=== PATIENT | male | born 1930 | race Caucasian/White ===

== ENCOUNTER → 2016-08-13 | Outpatient (CLI) | payer MEDICARE, OTHER ==
[~2016-08-13] MED LIST: ASCO500T5 PO; AZIT250T89 PO; BACL-19 PO; CARV3.122 PO; CARV6.2512 PO; DOCU-30 PO; FERR325T20 PO; FINA5TAB4 PO; FURO20TA3 PO; GABA300C10 PO; INSU100V5 SQ-INSULIN; LISI2.5T PO; METF500T4 PO; MIRT15TA6 PO; MULT-750 PO; POLY17PO5 PO; POTA10TA11 PO; RIVA20TA PO; SENN1TAB7 PO; TAMS0.4C2 PO; TRAM50TA2 PO; TRAV5DRO EACHEYE; VANC1VIA3 IV
== END | disposition home or self-care (01) ==
LOC: WOUND 12:50
PROVIDERS: ATTEND Internal Medicine
DX: E11.621 Type 2 diabetes mellitus with foot ulcer (principal); L97.411 Non-pressure chronic ulcer of right heel and midfoot limited to breakdown of skin; L89.512 Pressure ulcer of right ankle, stage 2; L89.150 Pressure ulcer of sacral region, unstageable; E44.0 Moderate protein-calorie malnutrition; Z86.718 Personal history of other venous thrombosis and embolism; M19.90 Unspecified osteoarthritis, unspecified site; Z87.891 Personal history of nicotine dependence
CPT/HCPCS: G0463; WOU0463

== ENCOUNTER 2016-08-20 11:12 | Inpatient (IN) | payer MEDICARE, OTHER ==
[~2016-08-20] VITALS: Ht 177.8 cm; Wt 70.0 kg
[~2016-08-20 11:12] MED LIST changes: -CARV6.2512 PO
[2016-08-20] MEDS ORDERED: SODIUM CHLORIDE 0.9% 1,000 ML IV ONE (12:17)
[2016-08-20] MEDS ORDERED: CARV6.2512 PO (12:26)
[2016-08-20] MEDS ORDERED: SODIUM CHLORIDE FLUSH 10ML SYR IVF ONE (12:30)
[2016-08-20 12:56] LABS: ASPARTATE AMINO TRANSFERASE 10 U/L (15-37); BLOOD UREA NITROGEN 12 mg/dL (7-18)
[2016-08-20] MEDS ORDERED: HYDROmorphone 1 MG/ML, 1ML IV ONE ×2 (13:00→15:30)
[2016-08-20] MEDS ORDERED: HYDROmorphone 1 MG/ML, 1ML ONE ×2 (13:03→15:07)
[2016-08-20] MEDS ORDERED: ONDANSETRON 2MG/ML, 2ML ONE (13:04)
[2016-08-20] MEDS ORDERED: ONDANSETRON 2MG/ML, 2ML IVPush ONE (13:30)
[2016-08-20] MEDS ORDERED: LORazepam 2 MG/ML, 1ML ONE (15:34)
[2016-08-20] MEDS ORDERED: GADOBUTROL 7.5 MMOL/7.5 ML PFS ONE (15:54)
[2016-08-20] MEDS ORDERED: LORazepam 2 MG/ML, 1ML IVPush ONE ×2 (16:00)
[2016-08-20] MEDS: SODIUM CHLORIDE 0.9% 1,000 ML IV SCH (18:48)
[2016-08-20] MEDS ORDERED: ACETAMINOPHEN 325 MG TABLET PO PRN (19:00)
[2016-08-20] MEDS ORDERED: OXYcodone IR 5MG TABLET PO PRN (19:00)
[2016-08-20] MEDS ORDERED: DOCUSATE 100 MG CAPSULE PO PRN (19:00)
[2016-08-20] MEDS ORDERED: ONDANSETRON 2MG/ML, 2ML IVPush PRN (19:00)
[2016-08-20] MEDS ORDERED: morphine SULFATE 10 MG/ML, 1ML IVPush PRN (19:00)
[2016-08-20] MEDS ORDERED: BISACODYL 10 MG SUPP PR PRN (19:30)
[2016-08-20] MEDS ORDERED: POLYETHYLENE GLYCOL 17 GM PACKET PO PRN (19:30)
[2016-08-20 20:27] VITALS: BP 151/78
[2016-08-20] MEDS: TRAVOPROST OPHTH 0.004%, 2.5ML EACHEYE SCH (21:00)
[2016-08-20] MEDS: INSULIN ASPART 100 UNITS/ML, PEN SQ-INSULIN SCH (21:00)
[2016-08-20] MEDS ORDERED: metFORMIN 500 MG TABLET PO SCH (21:00)
[2016-08-20] MEDS: METHOCARBAMOL 500 MG TABLET PO SCH (23:52)
[2016-08-20] MEDS: PANTOPRAZOLE 20MG TABLET PO SCH (23:52)
[2016-08-20] MEDS: MIRTAZAPINE 15 MG TAB.RAPDIS PO SCH (23:52)
[2016-08-20] MEDS: DEXAMETHASONE 10 MG in SODIUM CHLORIDE 0.9% 50 ML IV SCH (23:54)
[2016-08-21] MEDS: DEXAMETHASONE 10 MG in SODIUM CHLORIDE 0.9% 50 ML IV SCH ×2 (01:30→07:42)
[2016-08-21 03:05] VITALS: BP 135/65
[2016-08-21] MEDS: SODIUM CHLORIDE 0.9% 1,000 ML IV SCH ×2 (04:48→14:53)
[2016-08-21 06:33] VITALS: BP 156/60
[2016-08-21] MEDS: METHOCARBAMOL 500 MG TABLET PO SCH ×4 (06:42→20:55)
[2016-08-21] MEDS: INSULIN ASPART 100 UNITS/ML, PEN SQ-INSULIN SCH ×4 (06:42→22:13)
[2016-08-21 06:58] LABS: BLOOD UREA NITROGEN 12 mg/dL (7-18)
[2016-08-21 06:59] LABS: ASPARTATE AMINO TRANSFERASE 16 U/L (15-37)
[2016-08-21] MEDS: PANTOPRAZOLE 20MG TABLET PO SCH ×2 (07:42→20:55)
[2016-08-21] MEDS ORDERED: FERROUS SULFATE 325 MG TABLET PO SCH (09:00)
[2016-08-21] MEDS: POLYETHYLENE GLYCOL 17 GM PACKET PO SCH (10:16)
[2016-08-21] MEDS: SENNA/DOCUSATE TABLET PO SCH (10:16)
[2016-08-21] MEDS: MULTIVITAMIN 1 TABLET PO SCH (10:16)
[2016-08-21] MEDS: TAMSULOSIN 0.4 MG CAP.ER.24H PO SCH (10:16)
[2016-08-21] MEDS: CARVEDILOL 6.25 MG TABLET PO SCH (10:16)
[2016-08-21 14:43] VITALS: BP 131/64
[2016-08-21] MEDS: DEXAMETHASONE 4 MG/ML, 1ML IVPush SCH ×2 (14:53→20:55)
[2016-08-21] MEDS: MIRTAZAPINE 15 MG TAB.RAPDIS PO SCH (20:54)
[2016-08-21] MEDS: TRAVOPROST OPHTH 0.004%, 2.5ML EACHEYE SCH (21:00)
[2016-08-21 21:08] VITALS: BP 132/63
[2016-08-22 00:47] VITALS: BP 125/67
[2016-08-22] MEDS: LATANOPROST OPHTH 0.005%, 2.5ML EACHEYE SCH ×2 (02:36→20:09)
[2016-08-22] MEDS: DEXAMETHASONE 4 MG/ML, 1ML IVPush SCH ×2 (02:36→08:13)
[2016-08-22 05:26] LABS: BLOOD UREA NITROGEN 23 mg/dL (7-18)
[2016-08-22] MEDS: METHOCARBAMOL 500 MG TABLET PO SCH ×4 (06:28→20:08)
[2016-08-22] MEDS: POLYETHYLENE GLYCOL 17 GM PACKET PO SCH (08:12)
[2016-08-22] MEDS: INSULIN ASPART 100 UNITS/ML, PEN SQ-INSULIN SCH ×4 (08:12→20:28)
[2016-08-22] MEDS: TAMSULOSIN 0.4 MG CAP.ER.24H PO SCH (08:12)
[2016-08-22] MEDS: MULTIVITAMIN 1 TABLET PO SCH (08:12)
[2016-08-22] MEDS: SENNA/DOCUSATE TABLET PO SCH (08:12)
[2016-08-22] MEDS: PANTOPRAZOLE 20MG TABLET PO SCH ×2 (08:13→20:08)
[2016-08-22] MEDS: CARVEDILOL 6.25 MG TABLET PO SCH (08:13)
[2016-08-22 08:15] VITALS: BP 147/57
[2016-08-22 12:46] VITALS: BP 135/51
[2016-08-22] MEDS: DEXAMETHASONE 4 MG TABLET PO SCH (16:34)
[2016-08-22 18:26] VITALS: BP 130/55
[2016-08-22] MEDS: MIRTAZAPINE 15 MG TAB.RAPDIS PO SCH (20:08)
[2016-08-23 01:59] VITALS: BP 164/64
[2016-08-23] MEDS: INSULIN ASPART 100 UNITS/ML, PEN SQ-INSULIN SCH ×4 (06:09→20:21)
[2016-08-23] MEDS: METHOCARBAMOL 500 MG TABLET PO SCH ×4 (06:09→20:15)
[2016-08-23] MEDS: PANTOPRAZOLE 20MG TABLET PO SCH ×2 (07:54→20:15)
[2016-08-23] MEDS: MULTIVITAMIN 1 TABLET PO SCH (07:54)
[2016-08-23] MEDS: DEXAMETHASONE 4 MG TABLET PO SCH (07:54)
[2016-08-23] MEDS: CARVEDILOL 6.25 MG TABLET PO SCH (07:54)
[2016-08-23] MEDS: TAMSULOSIN 0.4 MG CAP.ER.24H PO SCH (07:58)
[2016-08-23] MEDS: POLYETHYLENE GLYCOL 17 GM PACKET PO SCH (07:59)
[2016-08-23] MEDS: SENNA/DOCUSATE TABLET PO SCH (07:59)
[2016-08-23 08:28] VITALS: BP 155/83
[2016-08-23 12:16] VITALS: BP 153/77
[2016-08-23] MEDS ORDERED: OXYC5TAB3 PO (12:57)
[2016-08-23] MEDS ORDERED: ALPR0.254 PO (12:57)
[2016-08-23] MEDS ORDERED: POLY17PO5 PO (12:57)
[2016-08-23] MEDS ORDERED: METH500T7 PO (12:57)
[2016-08-23 19:57] VITALS: BP 173/78
[2016-08-23] MEDS: MIRTAZAPINE 15 MG TAB.RAPDIS PO SCH (20:15)
[2016-08-23] MEDS: LATANOPROST OPHTH 0.005%, 2.5ML EACHEYE SCH (20:15)
[2016-08-23] MEDS: hydrALAzine 20 MG/ML, 1ML IVPush PRN (20:15)
[2016-08-24 01:37] VITALS: BP 183/85
[2016-08-24] MEDS: hydrALAzine 20 MG/ML, 1ML IVPush PRN (01:56)
[2016-08-24 02:10] VITALS: BP 149/67
[2016-08-24] MEDS: METHOCARBAMOL 500 MG TABLET PO SCH ×4 (06:01→22:04)
[2016-08-24] MEDS: INSULIN ASPART 100 UNITS/ML, PEN SQ-INSULIN SCH ×4 (06:01→20:28)
[2016-08-24 06:21] VITALS: BP 128/70
[2016-08-24] MEDS: MULTIVITAMIN 1 TABLET PO SCH (08:20)
[2016-08-24] MEDS: POLYETHYLENE GLYCOL 17 GM PACKET PO SCH (08:20)
[2016-08-24] MEDS: CARVEDILOL 6.25 MG TABLET PO SCH (08:20)
[2016-08-24] MEDS: SENNA/DOCUSATE TABLET PO SCH (08:20)
[2016-08-24] MEDS: TAMSULOSIN 0.4 MG CAP.ER.24H PO SCH (08:20)
[2016-08-24] MEDS: PANTOPRAZOLE 20MG TABLET PO SCH ×2 (08:20→20:09)
[2016-08-24 13:43] VITALS: BP 95/47
[2016-08-24 19:05] VITALS: BP 94/50
[2016-08-24] MEDS: MIRTAZAPINE 15 MG TAB.RAPDIS PO SCH (22:04)
[2016-08-24] MEDS: LATANOPROST OPHTH 0.005%, 2.5ML EACHEYE SCH (22:08)
[2016-08-25 03:49] VITALS: BP 104/49
[2016-08-25 06:26] VITALS: BP 135/66
[2016-08-25] MEDS: METHOCARBAMOL 500 MG TABLET PO SCH ×4 (06:36→22:54)
[2016-08-25] MEDS: INSULIN ASPART 100 UNITS/ML, PEN SQ-INSULIN SCH ×4 (07:21→19:52)
[2016-08-25] MEDS: MULTIVITAMIN 1 TABLET PO SCH (07:54)
[2016-08-25] MEDS: CARVEDILOL 6.25 MG TABLET PO SCH (07:54)
[2016-08-25] MEDS: POLYETHYLENE GLYCOL 17 GM PACKET PO SCH (07:54)
[2016-08-25] MEDS: PANTOPRAZOLE 20MG TABLET PO SCH ×2 (07:54→19:56)
[2016-08-25] MEDS: SENNA/DOCUSATE TABLET PO SCH (07:54)
[2016-08-25] MEDS: TAMSULOSIN 0.4 MG CAP.ER.24H PO SCH (07:54)
[2016-08-25 13:40] VITALS: BP 116/62
[2016-08-25 18:26] VITALS: BP 139/66
[2016-08-25] MEDS: LATANOPROST OPHTH 0.005%, 2.5ML EACHEYE SCH (19:56)
[2016-08-25] MEDS: MIRTAZAPINE 15 MG TAB.RAPDIS PO SCH (22:54)
[2016-08-26 00:19] VITALS: BP 157/75
[2016-08-26 05:15] LABS: BLOOD UREA NITROGEN 21 mg/dL (7-18)
[2016-08-26] MEDS: METHOCARBAMOL 500 MG TABLET PO SCH ×3 (06:10→16:19)
[2016-08-26] MEDS: INSULIN ASPART 100 UNITS/ML, PEN SQ-INSULIN SCH ×3 (06:14→16:20)
[2016-08-26 06:51] VITALS: BP 136/73
[2016-08-26] MEDS: POLYETHYLENE GLYCOL 17 GM PACKET PO SCH (08:44)
[2016-08-26] MEDS: SENNA/DOCUSATE TABLET PO SCH (08:44)
[2016-08-26] MEDS: PANTOPRAZOLE 20MG TABLET PO SCH (08:50)
[2016-08-26] MEDS: MULTIVITAMIN 1 TABLET PO SCH (08:50)
[2016-08-26] MEDS: TAMSULOSIN 0.4 MG CAP.ER.24H PO SCH (08:50)
[2016-08-26] MEDS: CARVEDILOL 6.25 MG TABLET PO SCH (08:51)
[2016-08-26 12:33] VITALS: BP 131/67
== END 2016-08-26 18:11 | DRG 551 ==
LOC: ED 11:42 → EDIP 14:33 → 4NOR 17:52
PROVIDERS: ADMIT Internal Medicine
DX: M48.06 Spinal stenosis, lumbar region (principal); E43 Unspecified severe protein-calorie malnutrition; L89.154 Pressure ulcer of sacral region, stage 4; K59.2 Neurogenic bowel, not elsewhere classified; D61.818 Other pancytopenia; G83.4 Cauda equina syndrome; S22.32XA Fracture of one rib, left side, initial encounter for closed fracture; M54.16 Radiculopathy, lumbar region; E11.9 Type 2 diabetes mellitus without complications; I10 Essential (primary) hypertension; K56.41 Fecal impaction; M81.0 Age-related osteoporosis without current pathological fracture; D53.9 Nutritional anemia, unspecified; G43.909 Migraine, unspecified, not intractable, without status migrainosus; M19.90 Unspecified osteoarthritis, unspecified site; N32.89 Other specified disorders of bladder; N40.1 Benign prostatic hyperplasia with lower urinary tract symptoms; R33.8 Other retention of urine; Z88.5 Allergy status to narcotic agent; Z88.1 Allergy status to other antibiotic agents; Z88.8 Allergy status to other drugs, medicaments and biological substances; Z90.49 Acquired absence of other specified parts of digestive tract; Z98.1 Arthrodesis status; Z79.899 Other long term (current) drug therapy; Z82.3 Family history of stroke; Z86.718 Personal history of other venous thrombosis and embolism; Z91.81 History of falling; Z99.3 Dependence on wheelchair; Z86.14 Personal history of Methicillin resistant Staphylococcus aureus infection; Z68.22 Body mass index [BMI] 22.0-22.9, adult
CPT/HCPCS: 36415; 71010; 72158; 74176; 80048; 80053; 80061; 81003; 82306; 82962; 83036; 83735; 84439; 84443; 85025; 85610; 87324; 87493; 96361; 96374; 96375; 96376; A9585; J1100; J1170; J1815; J2405; J0360; J2060; J7030

== ENCOUNTER 2016-10-03 19:45 | Emergency (ER) | payer MEDICARE, OTHER ==
[~2016-10-03] VITALS: Ht 177.8 cm; Wt 63.6 kg
[~2016-10-03 19:45] MED LIST changes: +ALPR0.254 PO; +CARV6.2512 PO; +METH500T7 PO; +OXYC5TAB3 PO
[2016-10-03] MEDS ORDERED: CARV3.122 PO (20:13)
[2016-10-03 22:28] VITALS: BP 122/67
== END 2016-10-03 22:31 | disposition home or self-care (01) ==
LOC: ED 20:07
DX: L25.9 Unspecified contact dermatitis, unspecified cause (principal); E11.9 Type 2 diabetes mellitus without complications; G43.909 Migraine, unspecified, not intractable, without status migrainosus; G89.29 Other chronic pain; M54.9 Dorsalgia, unspecified; M19.90 Unspecified osteoarthritis, unspecified site; N40.0 Benign prostatic hyperplasia without lower urinary tract symptoms
CPT/HCPCS: 93005; 99283

== ENCOUNTER 2016-10-10 02:12 | Emergency (ER) | payer MEDICARE, OTHER ==
[~2016-10-10] VITALS: Ht 177.8 cm; Wt 62.0 kg
[2016-10-10 05:38] VITALS: BP 156/70
== END 2016-10-10 05:43 | disposition home or self-care (01) ==
LOC: ED 02:30
DX: G89.11 Acute pain due to trauma (principal); M25.552 Pain in left hip; E11.9 Type 2 diabetes mellitus without complications; M19.90 Unspecified osteoarthritis, unspecified site; Z86.718 Personal history of other venous thrombosis and embolism; W06.XXXA Fall from bed, initial encounter; Y93.89 Activity, other specified; Y92.89 Other specified places as the place of occurrence of the external cause; Y99.9 Unspecified external cause status
CPT/HCPCS: 99284

== ENCOUNTER 2017-03-25 14:09 | Emergency (ER) | payer MEDICARE ==
[~2017-03-25] VITALS: Ht 177.8 cm; Wt 81.0 kg
[~2017-03-25 14:09] MED LIST changes: +AMOX-291 PO; +ASCO500C2 PO; +DOCU-131 PO; -DOCU-30 PO; +ENOX40SY4 SQ; +FERR325T18 PO; -FERR325T20 PO; +HYDR12.58 PO; +INSU100V8 SQ; +LACT20SO13 PO; +MAGN400O7 PO; +MULT-717 PO; +NITR100C56 PO; +SENN17.23 PO
[2017-03-25 14:56] VITALS: BP 127/78
[2017-03-25] MEDS ORDERED: SODIUM CHLORIDE FLUSH 10ML SYR IVF ONE (15:00)
[2017-03-25] MEDS ORDERED: SODIUM CHLORIDE 0.9% 1,000ML IVBOLUS ONE (15:00)
[2017-03-25 15:14] LABS: CULTURE INDICATED? YES; MICROSCOPIC INDICATED
[2017-03-25 15:18] LABS: MEAN CORPUSCULAR HEMOGLOBIN 34.6 pg (27.5-34.5); MEAN CORPUSCULAR VOLUME 101.7 fL (81-97); PLATELET COUNT 97 x10^3/uL (130-400)
[2017-03-25 15:26] LABS: ALANINE AMINOTRANSFERASE 15 U/L (12-78); ANION GAP 6 mmol/L (5-15); CALCIUM 8.8 mg/dL (8.5-10.1); CHLORIDE 101 mmol/L (98-107)
[2017-03-25 15:28] LABS: ALKALINE PHOSPHATASE 144 U/L (45-117); BILIRUBIN,TOTAL 0.8 mg/dL (0.2-1.0); TROPONIN I < 0.015 ng/mL (0.000-0.045)
[2017-03-25 15:52] LABS: BASOPHILS # (AUTO) 0.01 x10^3/uL (0-0.1); BASOPHILS % (AUTO) 0 % (0-1); EOSINOPHILS # (AUTO) 0.15 x10^3/uL (0-0.4); EOSINOPHILS % (AUTO) 4 % (1-7); LYMPHOCYTES # (AUTO) 0.78 x10^3/uL (1-3.4); LYMPHOCYTES % (AUTO) 20 % (22-44); MD SCAN; MONOCYTES # (AUTO) 0.27 x10^3/uL (0.2-0.8); MONOCYTES % (AUTO) 7 % (2-9); NEUTROPHILS # (AUTO) 2.69 x10^3/uL (1.8-6.8); NEUTROPHILS % (AUTO) 69 % (42-75)
== END 2017-03-25 18:41 ==
LOC: ED 16:06
DX: K59.00 Constipation, unspecified (principal); E11.9 Type 2 diabetes mellitus without complications; G43.909 Migraine, unspecified, not intractable, without status migrainosus; G89.29 Other chronic pain; M54.9 Dorsalgia, unspecified; H40.9 Unspecified glaucoma; Z87.891 Personal history of nicotine dependence
CPT/HCPCS: 36415; 74022; 80053; 81001; 83605; 83690; 84484; 85025; 87077; 87086; 87186; 93005; 96360; 96361; 99285; J7030

== ENCOUNTER 2017-04-02 15:04 | Observation (INO) | payer MEDICARE ==
[~2017-04-02] VITALS: Ht 177.8 cm; Wt 56.1 kg
[2017-04-02] MEDS ORDERED: HYDROmorphone 1 MG/ML, 1ML IVPush PRN (16:30)
[2017-04-02] MEDS ORDERED: SODIUM CHLORIDE FLUSH 10ML SYR IVF ONE (16:30)
[2017-04-02] MEDS ORDERED: SODIUM CHLORIDE 0.9% 1,000ML IVBOLUS ONE (16:30)
[2017-04-02 16:58] LABS: ALBUMIN 2.8 g/dL (3.4-5.0); ANION GAP 8 mmol/L (5-15); CALCIUM 8.5 mg/dL (8.5-10.1); CHLORIDE 105 mmol/L (98-107); CREATININE 0.61 mg/dL (0.7-1.3)
[2017-04-02 16:59] LABS: MEAN CORPUSCULAR HEMOGLOBIN 34.7 pg (27.5-34.5); RED BLOOD COUNT 3.53 x10^6/uL (4.38-5.82); RED CELL DISTRIBUTION WIDTH 13.2 % (9.4-14.8)
[2017-04-02 17:15] LABS: MEAN PLATELET VOLUME 6.4 fL (7.4-10.4); PLATELET COUNT 94 x10^3/uL (130-400)
[2017-04-02 17:17] LABS: MD YES
[2017-04-02 17:22] LABS: <RBC MORPHOLOGY> NORMAL; EOS#(MANUAL) 0.04 x10^3/uL (0.0-0.4); EOS% (MANUAL) 1 % (1-7); LYMPH#(MANUAL) 1.32 x10^3/uL (1-3.4); LYMPHS% (MANUAL) 30 % (22-44); MONOS#(MANUAL) 0.26 x10^3/uL (0.3-2.7); MONOS% (MANUAL) 6 % (2-9); REACTIVE LYMPHS % (MANUAL) 9 % (0-0); SEG#(MANUAL) 2.38 x10^3/uL (1.8-6.8); SEGS% (MANUAL) 54 % (42-75)
[2017-04-02 17:23] LABS: <PLATELET ESTIMATE> DECREASED; <PLT MORPHOLOGY> NORMAL PLT MORPH
[2017-04-02] MEDS ORDERED: HYDROmorphone 2 MG/ML, 1ML ONE (18:03)
[2017-04-02] MEDS: INSULIN ASPART 100 UNITS/ML, PEN SQ-INSULIN SCH (21:00)
[2017-04-02] MEDS ORDERED: MIRTAZAPINE 15 MG TAB.RAPDIS PO SCH (21:00)
[2017-04-02] MEDS ORDERED: LACTULOSE 20 GM/30 ML UDC PO PRN (21:00)
[2017-04-02] MEDS ORDERED: ACETAMINOPHEN 325 MG TABLET PO PRN (21:00)
[2017-04-02 21:46] VITALS: BP 139/62
[2017-04-03 01:40] VITALS: BP 149/65
[2017-04-03] MEDS: INSULIN ASPART 100 UNITS/ML, PEN SQ-INSULIN SCH ×2 (06:48→11:00)
[2017-04-03 07:21] VITALS: BP 156/65
[2017-04-03] MEDS ORDERED: TAMSULOSIN 0.4 MG CAP.ER.24H PO SCH (09:00)
[2017-04-03] MEDS ORDERED: MAGNESIUM HYDROXIDE 8%, 30ML UDC PO SCH (09:00)
[2017-04-03] MEDS ORDERED: MULTIVITAMIN 1 TABLET PO SCH (09:00)
[2017-04-03 13:04] VITALS: BP 142/78
== END 2017-04-03 17:55 | disposition home or self-care (01) ==
LOC: ED 16:44 → INTOOBSV 20:19 → EDIP 20:19 → 3NE 21:25
PROVIDERS: ADMIT Internal Medicine; ATTEND Internal Medicine
DX: R51 Headache (principal); R11.2 Nausea with vomiting, unspecified; G82.50 Quadriplegia, unspecified; E11.9 Type 2 diabetes mellitus without complications; R62.7 Adult failure to thrive; I25.2 Old myocardial infarction; H40.9 Unspecified glaucoma; Z98.1 Arthrodesis status
CPT/HCPCS: 36415; 70450; 80048; 82040; 82962; 85025; 99285; G0378

== ENCOUNTER 2017-11-02 17:31 | Emergency (ER) | payer MEDICARE ==
[~2017-11-02] VITALS: Ht 170.2 cm; Wt 50.0 kg
[~2017-11-02 17:31] MED LIST changes: +ACET-1600 PO; -METF500T4 PO; +METF500T5 PO
[2017-11-02 17:38] VITALS: BP 141/76
[2017-11-02 18:29] LABS: MEAN CORPUSCULAR HGB CONC 34.4 g/dL (33.2-36.2); MEAN CORPUSCULAR VOLUME 101.8 fL (81-97); MEAN PLATELET VOLUME 6.6 fL (7.4-10.4); PLATELET COUNT 93 x10^3/uL (130-400); RED BLOOD COUNT 3.35 x10^6/uL (4.38-5.82); RED CELL DISTRIBUTION WIDTH 14.8 % (9.4-14.8)
[2017-11-02 18:54] LABS: BASOPHILS # (AUTO) 0.02 x10^3/uL (0-0.1); BASOPHILS % (AUTO) 1 % (0-1); EOSINOPHILS # (AUTO) 0.16 x10^3/uL (0-0.4); EOSINOPHILS % (AUTO) 5 % (1-7); LYMPHOCYTES # (AUTO) 1.38 x10^3/uL (1-3.4); LYMPHOCYTES % (AUTO) 40 % (22-44); MD SCAN; MONOCYTES # (AUTO) 0.36 x10^3/uL (0.2-0.8); MONOCYTES % (AUTO) 10 % (2-9); NEUTROPHILS # (AUTO) 1.56 x10^3/uL (1.8-6.8); NEUTROPHILS % (AUTO) 45 % (42-75)
== END 2017-11-03 01:10 | disposition home or self-care (01) ==
LOC: ED 23:59
DX: I44.2 Atrioventricular block, complete (principal); E11.9 Type 2 diabetes mellitus without complications; I25.2 Old myocardial infarction; Z86.718 Personal history of other venous thrombosis and embolism
CPT/HCPCS: 36415; 85025; 93005; 99285

== ENCOUNTER 2017-11-10 19:20 | Inpatient (IN) | payer MEDICARE ==
[~2017-11-10] VITALS: Ht 177.8 cm; Wt 58.0 kg
[~2017-11-10 19:20] MED LIST changes: +METF500T17 PO; -METF500T5 PO; -SENN1TAB7 PO; +SENN1TAB8 PO
[2017-11-10 19:59] LABS: MEAN CORPUSCULAR HGB CONC 34.4 g/dL (33.2-36.2); MEAN CORPUSCULAR VOLUME 101.7 fL (81-97); MEAN PLATELET VOLUME 6.2 fL (7.4-10.4); PLATELET COUNT 155 x10^3/uL (130-400); RED BLOOD COUNT 3.99 x10^6/uL (4.38-5.82)
[2017-11-10] MEDS ORDERED: ONDANSETRON 2MG/ML, 2ML IVPush ONE (20:00)
[2017-11-10 20:01] LABS: BASOPHILS # (AUTO) 0.02 x10^3/uL (0-0.1); BASOPHILS % (AUTO) 0 % (0-1); EOSINOPHILS # (AUTO) 0.17 x10^3/uL (0-0.4); EOSINOPHILS % (AUTO) 3 % (1-7); LYMPHOCYTES # (AUTO) 1.97 x10^3/uL (1-3.4); LYMPHOCYTES % (AUTO) 28 % (22-44); MD NO; MONOCYTES # (AUTO) 0.65 x10^3/uL (0.2-0.8); MONOCYTES % (AUTO) 9 % (2-9); NEUTROPHILS # (AUTO) 4.13 x10^3/uL (1.8-6.8); NEUTROPHILS % (AUTO) 60 % (42-75)
[2017-11-10 20:09] LABS: ALANINE AMINOTRANSFERASE 23 U/L (12-78); ALBUMIN 2.9 g/dL (3.4-5.0); ANION GAP 6 mmol/L (5-15); CHLORIDE 103 mmol/L (98-107); CREATININE 0.72 mg/dL (0.7-1.3)
[2017-11-10 20:12] LABS: ALKALINE PHOSPHATASE 130 U/L (45-117); BILIRUBIN,TOTAL 0.5 mg/dL (0.2-1.0); TOTAL PROTEIN 7.9 g/dL (6.4-8.2)
[2017-11-10 21:28] LABS: CLOSTRIDIUM DIFFICILE ANTIGEN NEGATIVE; CLOSTRIDIUM DIFFICILE TOXIN NEGATIVE (Negative)
[2017-11-10] MEDS ORDERED: OMNIPAQUE 350 MG/ML, 100ML BOTTLE ONE (21:43)
[2017-11-10] MEDS: SODIUM CHLORIDE 0.9% 1,000 ML IV SCH (22:29)
[2017-11-10] MEDS ORDERED: hydrALAzine 20 MG/ML, 1ML IVPush PRN (22:30)
[2017-11-10] MEDS ORDERED: AMPICILLIN/SULBACTAM 1,500 MG in SODIUM CHLORIDE 0.9% 50 ML IV SCH (22:30)
[2017-11-10] MEDS ORDERED: BISACODYL 10 MG SUPP PR PRN (22:30)
[2017-11-10 23:01] LABS: MICROSCOPIC AUTO
[2017-11-10 23:08] LABS: CULTURE INDICATED? YES
[2017-11-10 23:22] VITALS: BP 130/74
[2017-11-11] MEDS: LACTULOSE 10 GM/15 ML UDC PO SCH ×3 (00:12→21:07)
[2017-11-11] MEDS: ENOXAPARIN 40 MG/0.4 ML SQ SCH ×2 (00:12→22:38)
[2017-11-11] MEDS ORDERED: PERMETHRIN CRM 5%, 60GM TP ONE (01:00)
[2017-11-11 01:28] VITALS: BP 97/68
[2017-11-11 05:08] LABS: BASOPHILS % (AUTO) 0 % (0-1); EOSINOPHILS # (AUTO) 0.16 x10^3/uL (0-0.4); EOSINOPHILS % (AUTO) 3 % (1-7); LYMPHOCYTES # (AUTO) 1.48 x10^3/uL (1-3.4); LYMPHOCYTES % (AUTO) 27 % (22-44); MD NO; MEAN CORPUSCULAR HEMOGLOBIN 34.8 pg (27.5-34.5); MEAN CORPUSCULAR HGB CONC 34.3 g/dL (33.2-36.2); MEAN CORPUSCULAR VOLUME 101.3 fL (81-97); MEAN PLATELET VOLUME 6.3 fL (7.4-10.4); MONOCYTES # (AUTO) 0.56 x10^3/uL (0.2-0.8); MONOCYTES % (AUTO) 10 % (2-9); NEUTROPHILS # (AUTO) 3.29 x10^3/uL (1.8-6.8); NEUTROPHILS % (AUTO) 60 % (42-75); PLATELET COUNT 104 x10^3/uL (130-400); RED BLOOD COUNT 3.51 x10^6/uL (4.38-5.82)
[2017-11-11] MEDS: AMPICILLIN/SULBACTAM 1,500 MG in SODIUM CHLORIDE 0.9% 50 ML IV SCH ×4 (05:14→22:38)
[2017-11-11 05:16] LABS: ALANINE AMINOTRANSFERASE 22 U/L (12-78); ALBUMIN 2.7 g/dL (3.4-5.0); ANION GAP 3 mmol/L (5-15); CALCIUM 8.9 mg/dL (8.5-10.1); CHLORIDE 105 mmol/L (98-107); CREATININE 0.63 mg/dL (0.7-1.3)
[2017-11-11 05:19] LABS: ALKALINE PHOSPHATASE 116 U/L (45-117); BILIRUBIN,TOTAL 0.5 mg/dL (0.2-1.0); TOTAL PROTEIN 7.2 g/dL (6.4-8.2)
[2017-11-11] MEDS ORDERED: MAGNESIUM CITRATE 300ML ORAL SOL PO ONE (05:30)
[2017-11-11] MEDS: METHOCARBAMOL 500 MG TABLET PO SCH ×4 (05:42→21:07)
[2017-11-11] MEDS: INSULIN LISPRO 100 UNITS/ML, PEN SQ-INSULIN SCH ×4 (07:00→20:27)
[2017-11-11 07:09] VITALS: BP 139/78
[2017-11-11] MEDS: POLYETHYLENE GLYCOL 17 GM PACKET PO SCH ×2 (07:51→08:06)
[2017-11-11] MEDS: metFORMIN 500 MG TABLET PO SCH ×2 (08:02→21:06)
[2017-11-11] MEDS: TAMSULOSIN 0.4 MG CAP.ER.24H PO SCH (08:06)
[2017-11-11] MEDS: SENNOSIDES 8.6 MG TABLET PO SCH (08:06)
[2017-11-11] MEDS: ASCORBIC ACID 500 MG TABLET PO SCH (08:07)
[2017-11-11] MEDS: MULTIVITAMIN 1 TABLET PO SCH (08:07)
[2017-11-11] MEDS: ACETAMINOPHEN 325 MG TABLET PO PRN ×2 (08:07→17:46)
[2017-11-11 12:55] VITALS: BP 135/76
[2017-11-11] MEDS ORDERED: GADOBUTROL 7.5 MMOL/7.5 ML PFS ONE (17:01)
[2017-11-11 17:10] LABS: % IRON SATURATION 30 % (20-55); FOLATE LEVEL > 20.0 ng/mL (3.1-17.5); IRON LEVEL 64 mcg/dL (65-175); TOTAL IRON BINDING CAPACITY 212 mcg/dL (250-450)
[2017-11-11 18:41] VITALS: BP 138/67
[2017-11-11] MEDS ORDERED: TRAVOPROST OPHTH 0.004%, 2.5ML EACHEYE SCH (21:00)
[2017-11-11] MEDS: MIRTAZAPINE 15 MG TAB.RAPDIS PO SCH (21:07)
[2017-11-11] MEDS: SODIUM CHLORIDE 0.9% 1,000 ML IV SCH (22:41)
[2017-11-12 00:42] VITALS: BP 164/74
[2017-11-12] MEDS: AMPICILLIN/SULBACTAM 1,500 MG in SODIUM CHLORIDE 0.9% 50 ML IV SCH ×3 (04:30→18:37)
[2017-11-12] MEDS: METHOCARBAMOL 500 MG TABLET PO SCH ×4 (05:24→20:42)
[2017-11-12 06:58] VITALS: BP 123/56
[2017-11-12] MEDS: INSULIN LISPRO 100 UNITS/ML, PEN SQ-INSULIN SCH ×4 (07:00→21:30)
[2017-11-12] MEDS: metFORMIN 500 MG TABLET PO SCH ×2 (07:50→20:43)
[2017-11-12] MEDS: MULTIVITAMIN 1 TABLET PO SCH (09:00)
[2017-11-12] MEDS: SENNOSIDES 8.6 MG TABLET PO SCH (09:00)
[2017-11-12] MEDS: ASCORBIC ACID 500 MG TABLET PO SCH (09:00)
[2017-11-12] MEDS: LACTULOSE 10 GM/15 ML UDC PO SCH ×3 (09:00→21:00)
[2017-11-12] MEDS: POLYETHYLENE GLYCOL 17 GM PACKET PO SCH ×2 (09:00)
[2017-11-12] MEDS: TAMSULOSIN 0.4 MG CAP.ER.24H PO SCH (09:00)
[2017-11-12] MEDS: SODIUM CHLORIDE 0.9% 1,000 ML IV SCH (13:05)
[2017-11-12 14:06] VITALS: BP 125/92
[2017-11-12 19:08] VITALS: BP 130/68
[2017-11-12] MEDS: LATANOPROST OPHTH 0.005%, 2.5ML EACHEYE SCH (20:42)
[2017-11-12] MEDS: ENOXAPARIN 40 MG/0.4 ML SQ SCH (20:42)
[2017-11-12] MEDS: MIRTAZAPINE 15 MG TAB.RAPDIS PO SCH (20:43)
[2017-11-12] MEDS: ACETAMINOPHEN 325 MG TABLET PO PRN (21:30)
[2017-11-13] MEDS: AMPICILLIN/SULBACTAM 1,500 MG in SODIUM CHLORIDE 0.9% 50 ML IV SCH ×4 (01:10→23:23)
[2017-11-13 01:21] VITALS: BP 126/53
[2017-11-13] MEDS: SODIUM CHLORIDE 0.9% 1,000 ML IV SCH ×2 (02:54→17:18)
[2017-11-13] MEDS: METHOCARBAMOL 500 MG TABLET PO SCH ×4 (05:35→20:45)
[2017-11-13 07:33] VITALS: BP 159/76
[2017-11-13] MEDS: SENNOSIDES 8.6 MG TABLET PO SCH ×2 (08:04→08:11)
[2017-11-13] MEDS: LACTULOSE 10 GM/15 ML UDC PO SCH ×2 (08:04→20:42)
[2017-11-13] MEDS: POLYETHYLENE GLYCOL 17 GM PACKET PO SCH ×2 (08:04)
[2017-11-13] MEDS: INSULIN LISPRO 100 UNITS/ML, PEN SQ-INSULIN SCH ×4 (08:10→20:45)
[2017-11-13] MEDS: MULTIVITAMIN 1 TABLET PO SCH (08:11)
[2017-11-13] MEDS: TAMSULOSIN 0.4 MG CAP.ER.24H PO SCH (08:11)
[2017-11-13] MEDS: metFORMIN 500 MG TABLET PO SCH ×2 (08:11→20:46)
[2017-11-13] MEDS: ASCORBIC ACID 500 MG TABLET PO SCH (08:11)
[2017-11-13 14:16] VITALS: BP 116/61
[2017-11-13 18:55] VITALS: BP 131/70
[2017-11-13] MEDS: LATANOPROST OPHTH 0.005%, 2.5ML EACHEYE SCH (20:45)
[2017-11-13] MEDS: MIRTAZAPINE 15 MG TAB.RAPDIS PO SCH (20:46)
[2017-11-13] MEDS: ENOXAPARIN 40 MG/0.4 ML SQ SCH (23:23)
[2017-11-14 00:47] VITALS: BP 169/76
[2017-11-14] MEDS: AMPICILLIN/SULBACTAM 1,500 MG in SODIUM CHLORIDE 0.9% 50 ML IV SCH ×2 (05:04→11:14)
[2017-11-14] MEDS: SODIUM CHLORIDE 0.9% 1,000 ML IV SCH ×2 (05:04→20:17)
[2017-11-14] MEDS: METHOCARBAMOL 500 MG TABLET PO SCH ×4 (05:35→20:21)
[2017-11-14 06:54] VITALS: BP 145/67
[2017-11-14] MEDS: INSULIN LISPRO 100 UNITS/ML, PEN SQ-INSULIN SCH ×4 (07:00→20:20)
[2017-11-14] MEDS: POLYETHYLENE GLYCOL 17 GM PACKET PO SCH (09:00)
[2017-11-14] MEDS: SENNOSIDES 8.6 MG TABLET PO SCH (09:30)
[2017-11-14] MEDS: MULTIVITAMIN 1 TABLET PO SCH (09:30)
[2017-11-14] MEDS: ASCORBIC ACID 500 MG TABLET PO SCH (09:30)
[2017-11-14] MEDS: TAMSULOSIN 0.4 MG CAP.ER.24H PO SCH (09:30)
[2017-11-14] MEDS: metFORMIN 500 MG TABLET PO SCH ×2 (09:30→20:21)
[2017-11-14] MEDS: LACTULOSE 10 GM/15 ML UDC PO SCH ×2 (09:30→20:21)
[2017-11-14 13:44] VITALS: BP 132/64
[2017-11-14 18:44] VITALS: BP 128/75
[2017-11-14] MEDS: LATANOPROST OPHTH 0.005%, 2.5ML EACHEYE SCH (20:17)
[2017-11-14] MEDS: AMOXICILLIN/CLAV 875-125MG TABLET PO SCH (20:20)
[2017-11-14] MEDS: ENOXAPARIN 40 MG/0.4 ML SQ SCH (20:20)
[2017-11-14] MEDS: MIRTAZAPINE 15 MG TAB.RAPDIS PO SCH (20:20)
[2017-11-15] MEDS: ACETAMINOPHEN 325 MG TABLET PO PRN ×3 (00:02→18:31)
[2017-11-15 03:05] VITALS: BP 155/73
[2017-11-15 04:27] LABS: MEAN CORPUSCULAR HEMOGLOBIN 34.4 pg (27.5-34.5); MEAN CORPUSCULAR VOLUME 101.1 fL (81-97); RED BLOOD COUNT 3.35 x10^6/uL (4.38-5.82)
[2017-11-15 04:38] LABS: ALBUMIN 2.3 g/dL (3.4-5.0); ANION GAP 7 mmol/L (5-15); CHLORIDE 111 mmol/L (98-107); CREATININE 0.57 mg/dL (0.7-1.3)
[2017-11-15 04:42] LABS: BASOPHILS # (AUTO) 0.01 x10^3/uL (0-0.1); BASOPHILS % (AUTO) 0 % (0-1); EOSINOPHILS # (AUTO) 0.29 x10^3/uL (0-0.4); EOSINOPHILS % (AUTO) 7 % (1-7); LYMPHOCYTES # (AUTO) 1.85 x10^3/uL (1-3.4); LYMPHOCYTES % (AUTO) 41 % (22-44); MD SCAN; MEAN PLATELET VOLUME 6.2 fL (7.4-10.4); MONOCYTES # (AUTO) 0.39 x10^3/uL (0.2-0.8); MONOCYTES % (AUTO) 9 % (2-9); NEUTROPHILS # (AUTO) 1.94 x10^3/uL (1.8-6.8); NEUTROPHILS % (AUTO) 43 % (42-75); PLATELET COUNT 94 x10^3/uL (130-400)
[2017-11-15] MEDS: METHOCARBAMOL 500 MG TABLET PO SCH ×4 (04:48→22:00)
[2017-11-15] MEDS: INSULIN LISPRO 100 UNITS/ML, PEN SQ-INSULIN SCH ×4 (07:00→21:00)
[2017-11-15 07:48] VITALS: BP 171/87
[2017-11-15] MEDS: POLYETHYLENE GLYCOL 17 GM PACKET PO SCH (09:00)
[2017-11-15] MEDS: LACTULOSE 10 GM/15 ML UDC PO SCH ×2 (09:00→21:40)
[2017-11-15] MEDS ORDERED: PHENYLEPHRINE 10 MG/ML ONE (10:41)
[2017-11-15] MEDS ORDERED: MIDAZOLAM 1 MG/ML, 2ML ONE (11:15)
[2017-11-15] MEDS ORDERED: FENTANYL PF 100 MCG/2ML ONE ×2 (11:15→12:56)
[2017-11-15] MEDS ORDERED: PROPOFOL 10 MG/ML, 20ML ONE (11:16)
[2017-11-15] MEDS ORDERED: WATER-INJECTION,STERILE 10 ML IV ONE (11:17)
[2017-11-15] MEDS ORDERED: CEFAZOLIN 1,000 MG ONE ×2 (11:17)
[2017-11-15] MEDS ORDERED: LABETALOL 5MG/ML, 20ML IV PRN (11:30)
[2017-11-15] MEDS ORDERED: PROMETHAZINE 12.5 MG SUPP PR PRN (11:30)
[2017-11-15] MEDS ORDERED: FENTANYL PF 100 MCG/2ML IV PRN (11:30)
[2017-11-15] MEDS ORDERED: OXYcodone 5 MG/5 ML ORAL.SOL UDC PO PRN ×2 (11:30)
[2017-11-15] MEDS ORDERED: hydrALAzine 20 MG/ML, 1ML IV PRN (11:30)
[2017-11-15] MEDS ORDERED: PROMETHAZINE 25 MG/ML, 1ML IV PRN (11:30)
[2017-11-15] MEDS ORDERED: MEPERIDINE/PF 25MG/0.5ML IVPush PRN (11:30)
[2017-11-15] MEDS ORDERED: HYDROmorphone 1 MG/ML, 1ML IV PRN ×2 (11:30)
[2017-11-15] MEDS ORDERED: PROMETHAZINE 25 MG SUPP PR PRN (11:30)
[2017-11-15] MEDS ORDERED: ONDANSETRON ODT 8 MG PO PRN (11:30)
[2017-11-15] MEDS ORDERED: ONDANSETRON 2MG/ML, 2ML IV PRN ×2 (11:30)
[2017-11-15] MEDS ORDERED: ONDANSETRON 2MG/ML, 2ML ONE (12:52)
[2017-11-15] MEDS: FENTANYL PF 100 MCG/2ML IV PRN ×2 (13:00→13:10)
[2017-11-15] MEDS: AMOXICILLIN/CLAV 875-125MG TABLET PO SCH ×2 (14:03→22:00)
[2017-11-15] MEDS: TAMSULOSIN 0.4 MG CAP.ER.24H PO SCH (14:03)
[2017-11-15] MEDS: metFORMIN 500 MG TABLET PO SCH ×2 (14:03→22:00)
[2017-11-15] MEDS: MULTIVITAMIN 1 TABLET PO SCH (14:04)
[2017-11-15] MEDS: SENNOSIDES 8.6 MG TABLET PO SCH (14:04)
[2017-11-15] MEDS: ASCORBIC ACID 500 MG TABLET PO SCH (14:04)
[2017-11-15 14:30] VITALS: BP 138/66
[2017-11-15] MEDS: SODIUM CHLORIDE 0.9% 1,000 ML IV SCH (17:22)
[2017-11-15 20:25] VITALS: BP 140/64
[2017-11-15] MEDS: MIRTAZAPINE 15 MG TAB.RAPDIS PO SCH (22:00)
[2017-11-15] MEDS: LATANOPROST OPHTH 0.005%, 2.5ML EACHEYE SCH (22:01)
[2017-11-15] MEDS: ENOXAPARIN 40 MG/0.4 ML SQ SCH (22:29)
[2017-11-15 22:53] LABS: MICROSCOPIC NOT IND
[2017-11-15 22:55] LABS: CULTURE INDICATED? NO
[2017-11-16 01:37] VITALS: BP 105/67
[2017-11-16 05:35] LABS: ANION GAP 6 mmol/L (5-15); CHLORIDE 111 mmol/L (98-107); MEAN CORPUSCULAR HEMOGLOBIN 34.7 pg (27.5-34.5); MEAN CORPUSCULAR HGB CONC 34.7 g/dL (33.2-36.2); MEAN PLATELET VOLUME 6.3 fL (7.4-10.4); PLATELET COUNT 97 x10^3/uL (130-400); RED BLOOD COUNT 3.14 x10^6/uL (4.38-5.82)
[2017-11-16 05:37] LABS: CREATININE 0.52 mg/dL (0.7-1.3)
[2017-11-16] MEDS: METHOCARBAMOL 500 MG TABLET PO SCH ×4 (06:10→20:47)
[2017-11-16 06:19] LABS: BASOPHILS # (AUTO) 0.01 x10^3/uL (0-0.1); BASOPHILS % (AUTO) 0 % (0-1); EOSINOPHILS # (AUTO) 0.21 x10^3/uL (0-0.4); EOSINOPHILS % (AUTO) 5 % (1-7); LYMPHOCYTES # (AUTO) 1.52 x10^3/uL (1-3.4); LYMPHOCYTES % (AUTO) 33 % (22-44); MD SCAN; MONOCYTES # (AUTO) 0.42 x10^3/uL (0.2-0.8); MONOCYTES % (AUTO) 9 % (2-9); NEUTROPHILS # (AUTO) 2.46 x10^3/uL (1.8-6.8); NEUTROPHILS % (AUTO) 53 % (42-75)
[2017-11-16] MEDS: INSULIN LISPRO 100 UNITS/ML, PEN SQ-INSULIN SCH ×4 (07:00→20:48)
[2017-11-16 07:20] VITALS: BP 144/75
[2017-11-16] MEDS: POLYETHYLENE GLYCOL 17 GM PACKET PO SCH (09:00)
[2017-11-16] MEDS: SENNOSIDES 8.6 MG TABLET PO SCH (09:00)
[2017-11-16] MEDS: TAMSULOSIN 0.4 MG CAP.ER.24H PO SCH (09:00)
[2017-11-16] MEDS: LACTULOSE 10 GM/15 ML UDC PO SCH ×2 (09:00→20:47)
[2017-11-16] MEDS: metFORMIN 500 MG TABLET PO SCH ×2 (09:50→20:47)
[2017-11-16] MEDS: ASCORBIC ACID 500 MG TABLET PO SCH (09:50)
[2017-11-16] MEDS: AMOXICILLIN/CLAV 875-125MG TABLET PO SCH ×2 (09:50→21:54)
[2017-11-16] MEDS: MULTIVITAMIN 1 TABLET PO SCH (09:50)
[2017-11-16 13:41] VITALS: BP 122/62
[2017-11-16] MEDS: SODIUM CHLORIDE 0.9% 1,000 ML IV SCH (17:56)
[2017-11-16 19:01] VITALS: BP 131/64
[2017-11-16] MEDS: MIRTAZAPINE 15 MG TAB.RAPDIS PO SCH (20:48)
[2017-11-16] MEDS: ENOXAPARIN 40 MG/0.4 ML SQ SCH (21:54)
[2017-11-16] MEDS: LATANOPROST OPHTH 0.005%, 2.5ML EACHEYE SCH (21:54)
[2017-11-17 01:11] VITALS: BP 131/70
[2017-11-17] MEDS: METHOCARBAMOL 500 MG TABLET PO SCH ×4 (05:57→20:03)
[2017-11-17] MEDS: INSULIN LISPRO 100 UNITS/ML, PEN SQ-INSULIN SCH ×4 (07:00→20:02)
[2017-11-17 07:48] VITALS: BP 128/60
[2017-11-17] MEDS: POLYETHYLENE GLYCOL 17 GM PACKET PO SCH (07:59)
[2017-11-17] MEDS: AMOXICILLIN/CLAV 875-125MG TABLET PO SCH ×2 (07:59→20:03)
[2017-11-17] MEDS: MULTIVITAMIN 1 TABLET PO SCH (07:59)
[2017-11-17] MEDS: SENNOSIDES 8.6 MG TABLET PO SCH (07:59)
[2017-11-17] MEDS: metFORMIN 500 MG TABLET PO SCH ×3 (07:59→20:02)
[2017-11-17] MEDS: ASCORBIC ACID 500 MG TABLET PO SCH (07:59)
[2017-11-17] MEDS: TAMSULOSIN 0.4 MG CAP.ER.24H PO SCH (08:00)
[2017-11-17 13:30] VITALS: BP 116/63
[2017-11-17 19:40] VITALS: BP 118/59
[2017-11-17] MEDS: MIRTAZAPINE 15 MG TAB.RAPDIS PO SCH (20:02)
[2017-11-17] MEDS: LATANOPROST OPHTH 0.005%, 2.5ML EACHEYE SCH (20:03)
[2017-11-17] MEDS: ENOXAPARIN 40 MG/0.4 ML SQ SCH (20:04)
[2017-11-18 02:29] VITALS: BP 156/70
[2017-11-18] MEDS: METHOCARBAMOL 500 MG TABLET PO SCH ×4 (05:37→20:47)
[2017-11-18 06:49] VITALS: BP 137/68
[2017-11-18] MEDS: INSULIN LISPRO 100 UNITS/ML, PEN SQ-INSULIN SCH ×4 (07:00→20:49)
[2017-11-18] MEDS: AMOXICILLIN/CLAV 875-125MG TABLET PO SCH ×2 (08:19→20:47)
[2017-11-18] MEDS: TAMSULOSIN 0.4 MG CAP.ER.24H PO SCH (08:20)
[2017-11-18] MEDS: POLYETHYLENE GLYCOL 17 GM PACKET PO SCH (08:21)
[2017-11-18] MEDS: MULTIVITAMIN 1 TABLET PO SCH (08:21)
[2017-11-18] MEDS: ASCORBIC ACID 500 MG TABLET PO SCH (08:21)
[2017-11-18] MEDS: metFORMIN 500 MG TABLET PO SCH ×2 (08:22→20:47)
[2017-11-18] MEDS: SENNOSIDES 8.6 MG TABLET PO SCH (08:22)
[2017-11-18] MEDS ORDERED: AMOX1TAB12 PO (09:44)
[2017-11-18 12:20] VITALS: BP 143/84
[2017-11-18 19:09] VITALS: BP 128/67
[2017-11-18] MEDS: LATANOPROST OPHTH 0.005%, 2.5ML EACHEYE SCH (20:47)
[2017-11-18] MEDS: MIRTAZAPINE 15 MG TAB.RAPDIS PO SCH (20:48)
[2017-11-18] MEDS: ENOXAPARIN 40 MG/0.4 ML SQ SCH (20:48)
[2017-11-19 02:13] VITALS: BP 157/72
[2017-11-19] MEDS: METHOCARBAMOL 500 MG TABLET PO SCH ×4 (05:30→21:08)
[2017-11-19] MEDS: AMOXICILLIN/CLAV 875-125MG TABLET PO SCH ×2 (08:30→21:08)
[2017-11-19] MEDS: ASCORBIC ACID 500 MG TABLET PO SCH (08:30)
[2017-11-19] MEDS: ACETAMINOPHEN 325 MG TABLET PO PRN (08:30)
[2017-11-19] MEDS: TAMSULOSIN 0.4 MG CAP.ER.24H PO SCH (08:30)
[2017-11-19] MEDS: MULTIVITAMIN 1 TABLET PO SCH (08:30)
[2017-11-19] MEDS: INSULIN LISPRO 100 UNITS/ML, PEN SQ-INSULIN SCH ×4 (08:30→21:35)
[2017-11-19] MEDS: metFORMIN 500 MG TABLET PO SCH ×2 (08:30→21:08)
[2017-11-19] MEDS: POLYETHYLENE GLYCOL 17 GM PACKET PO SCH (08:31)
[2017-11-19] MEDS: SENNOSIDES 8.6 MG TABLET PO SCH (08:31)
[2017-11-19 08:36] VITALS: BP 106/62
[2017-11-19 13:22] VITALS: BP 125/67
[2017-11-19 18:42] VITALS: BP 120/65
[2017-11-19] MEDS: LATANOPROST OPHTH 0.005%, 2.5ML EACHEYE SCH (21:08)
[2017-11-19] MEDS: ENOXAPARIN 40 MG/0.4 ML SQ SCH (21:09)
[2017-11-19] MEDS: MIRTAZAPINE 15 MG TAB.RAPDIS PO SCH (21:09)
[2017-11-20 01:58] VITALS: BP 139/71
[2017-11-20 05:15] LABS: CREATININE 0.51 mg/dL (0.7-1.3)
[2017-11-20] MEDS: METHOCARBAMOL 500 MG TABLET PO SCH ×4 (05:27→20:48)
[2017-11-20 06:53] VITALS: BP 114/66
[2017-11-20] MEDS: INSULIN LISPRO 100 UNITS/ML, PEN SQ-INSULIN SCH ×4 (07:00→20:49)
[2017-11-20] MEDS: TAMSULOSIN 0.4 MG CAP.ER.24H PO SCH (08:01)
[2017-11-20] MEDS: SENNOSIDES 8.6 MG TABLET PO SCH (09:00)
[2017-11-20] MEDS: POLYETHYLENE GLYCOL 17 GM PACKET PO SCH (09:00)
[2017-11-20] MEDS: MULTIVITAMIN 1 TABLET PO SCH (09:00)
[2017-11-20] MEDS: ASCORBIC ACID 500 MG TABLET PO SCH (09:00)
[2017-11-20] MEDS: AMOXICILLIN/CLAV 875-125MG TABLET PO SCH ×2 (09:00→20:49)
[2017-11-20] MEDS: metFORMIN 500 MG TABLET PO SCH ×2 (09:00→20:48)
[2017-11-20 14:15] VITALS: BP 125/65
[2017-11-20 18:38] VITALS: BP 151/79
[2017-11-20] MEDS: LATANOPROST OPHTH 0.005%, 2.5ML EACHEYE SCH (20:48)
[2017-11-20] MEDS: MIRTAZAPINE 15 MG TAB.RAPDIS PO SCH (20:49)
[2017-11-20] MEDS: ENOXAPARIN 40 MG/0.4 ML SQ SCH (20:49)
[2017-11-21 00:53] VITALS: BP 137/77
[2017-11-21 00:54] VITALS: BP 123/62
[2017-11-21] MEDS: METHOCARBAMOL 500 MG TABLET PO SCH ×4 (05:38→20:30)
[2017-11-21 07:24] VITALS: BP 151/87
[2017-11-21] MEDS: SENNOSIDES 8.6 MG TABLET PO SCH (09:00)
[2017-11-21] MEDS: POLYETHYLENE GLYCOL 17 GM PACKET PO SCH (09:21)
[2017-11-21] MEDS: AMOXICILLIN/CLAV 875-125MG TABLET PO SCH ×2 (09:22→20:30)
[2017-11-21] MEDS: metFORMIN 500 MG TABLET PO SCH ×2 (09:22→20:30)
[2017-11-21] MEDS: MULTIVITAMIN 1 TABLET PO SCH (09:22)
[2017-11-21] MEDS: TAMSULOSIN 0.4 MG CAP.ER.24H PO SCH (09:22)
[2017-11-21] MEDS: ASCORBIC ACID 500 MG TABLET PO SCH (09:22)
[2017-11-21] MEDS: ACETAMINOPHEN 325 MG TABLET PO PRN (09:22)
[2017-11-21] MEDS: INSULIN LISPRO 100 UNITS/ML, PEN SQ-INSULIN SCH ×4 (09:22→20:20)
[2017-11-21 13:55] VITALS: BP 123/69
[2017-11-21 18:49] VITALS: BP 115/69
[2017-11-21] MEDS: LATANOPROST OPHTH 0.005%, 2.5ML EACHEYE SCH (20:30)
[2017-11-21] MEDS: MIRTAZAPINE 15 MG TAB.RAPDIS PO SCH (20:30)
[2017-11-21] MEDS: ENOXAPARIN 40 MG/0.4 ML SQ SCH (20:30)
[2017-11-21] MEDS: LACTULOSE 20 GM/30 ML UDC PO PRN (21:06)
[2017-11-22 01:21] VITALS: BP 130/79
[2017-11-22] MEDS: ACETAMINOPHEN 325 MG TABLET PO PRN ×2 (01:56→22:03)
[2017-11-22] MEDS: METHOCARBAMOL 500 MG TABLET PO SCH ×4 (05:33→20:23)
[2017-11-22] MEDS: INSULIN LISPRO 100 UNITS/ML, PEN SQ-INSULIN SCH ×4 (07:00→20:23)
[2017-11-22 07:59] VITALS: BP 116/64
[2017-11-22] MEDS: SENNOSIDES 8.6 MG TABLET PO SCH (09:00)
[2017-11-22] MEDS: POLYETHYLENE GLYCOL 17 GM PACKET PO SCH (09:34)
[2017-11-22] MEDS: MULTIVITAMIN 1 TABLET PO SCH (09:35)
[2017-11-22] MEDS: AMOXICILLIN/CLAV 875-125MG TABLET PO SCH ×2 (09:35→20:23)
[2017-11-22] MEDS: TAMSULOSIN 0.4 MG CAP.ER.24H PO SCH (09:35)
[2017-11-22] MEDS: ASCORBIC ACID 500 MG TABLET PO SCH (09:35)
[2017-11-22] MEDS: metFORMIN 500 MG TABLET PO SCH ×2 (09:35→20:23)
[2017-11-22 12:11] VITALS: BP 143/76
[2017-11-22 18:53] VITALS: BP 113/64
[2017-11-22] MEDS: MIRTAZAPINE 15 MG TAB.RAPDIS PO SCH (20:23)
[2017-11-22] MEDS: LACTULOSE 20 GM/30 ML UDC PO PRN (20:23)
[2017-11-22] MEDS: LATANOPROST OPHTH 0.005%, 2.5ML EACHEYE SCH (20:23)
[2017-11-22] MEDS: ENOXAPARIN 40 MG/0.4 ML SQ SCH (20:23)
[2017-11-23 01:30] VITALS: BP 126/66
[2017-11-23] MEDS: METHOCARBAMOL 500 MG TABLET PO SCH ×4 (04:59→22:17)
[2017-11-23 05:46] LABS: CREATININE 0.61 mg/dL (0.7-1.3)
[2017-11-23] MEDS: ACETAMINOPHEN 325 MG TABLET PO PRN ×2 (06:29→22:17)
[2017-11-23] MEDS: INSULIN LISPRO 100 UNITS/ML, PEN SQ-INSULIN SCH ×4 (07:00→21:36)
[2017-11-23 07:06] VITALS: BP 122/68
[2017-11-23] MEDS: TAMSULOSIN 0.4 MG CAP.ER.24H PO SCH (08:48)
[2017-11-23] MEDS: metFORMIN 500 MG TABLET PO SCH ×2 (08:48→22:17)
[2017-11-23] MEDS: AMOXICILLIN/CLAV 875-125MG TABLET PO SCH ×2 (08:48→22:17)
[2017-11-23] MEDS: POLYETHYLENE GLYCOL 17 GM PACKET PO SCH (08:48)
[2017-11-23] MEDS: SENNOSIDES 8.6 MG TABLET PO SCH (08:48)
[2017-11-23] MEDS: MULTIVITAMIN 1 TABLET PO SCH (08:48)
[2017-11-23] MEDS: ASCORBIC ACID 500 MG TABLET PO SCH (08:48)
[2017-11-23 14:03] VITALS: BP 129/73
[2017-11-23 19:27] VITALS: BP 115/72
[2017-11-23] MEDS: ENOXAPARIN 40 MG/0.4 ML SQ SCH (22:15)
[2017-11-23] MEDS: LATANOPROST OPHTH 0.005%, 2.5ML EACHEYE SCH (22:16)
[2017-11-23] MEDS: MIRTAZAPINE 15 MG TAB.RAPDIS PO SCH (22:18)
[2017-11-24 01:21] VITALS: BP 139/76
[2017-11-24] MEDS: METHOCARBAMOL 500 MG TABLET PO SCH ×2 (06:48→12:16)
[2017-11-24 08:25] VITALS: BP 133/74
[2017-11-24] MEDS: INSULIN LISPRO 100 UNITS/ML, PEN SQ-INSULIN SCH ×2 (08:38→12:16)
[2017-11-24] MEDS: POLYETHYLENE GLYCOL 17 GM PACKET PO SCH (09:56)
[2017-11-24] MEDS: SENNOSIDES 8.6 MG TABLET PO SCH (09:57)
[2017-11-24] MEDS: ACETAMINOPHEN 325 MG TABLET PO PRN (10:03)
[2017-11-24] MEDS: AMOXICILLIN/CLAV 875-125MG TABLET PO SCH (10:03)
[2017-11-24] MEDS: metFORMIN 500 MG TABLET PO SCH (10:03)
[2017-11-24] MEDS: ASCORBIC ACID 500 MG TABLET PO SCH (10:03)
[2017-11-24] MEDS: MULTIVITAMIN 1 TABLET PO SCH (10:03)
[2017-11-24] MEDS: TAMSULOSIN 0.4 MG CAP.ER.24H PO SCH (10:04)
[2017-11-24 14:45] VITALS: BP 128/77
== END 2017-11-24 16:41 | DRG 616 ==
LOC: ED 21:41 → SUATTDRO 22:29 → EDIP 22:29 → 3NE 23:15
PROVIDERS: ADMIT Hospitalist; ATTEND Hospitalist
PROC: 0Y6N0Z4 Detachment at Left Foot, Complete 1st Ray, Open Approach (ICD-10-PCS; principal; 2017-11-15 10:30)
DX: E11.69 Type 2 diabetes mellitus with other specified complication (principal); E43 Unspecified severe protein-calorie malnutrition; R64 Cachexia; M86.172 Other acute osteomyelitis, left ankle and foot; Z68.1 Body mass index [BMI] 19.9 or less, adult; R53.2 Functional quadriplegia; B96.20 Unspecified Escherichia coli [E. coli] as the cause of diseases classified elsewhere; B96.4 Proteus (mirabilis) (morganii) as the cause of diseases classified elsewhere; H40.9 Unspecified glaucoma; E11.621 Type 2 diabetes mellitus with foot ulcer; L97.529 Non-pressure chronic ulcer of other part of left foot with unspecified severity; N30.90 Cystitis, unspecified without hematuria; K59.09 Other constipation; R53.81 Other malaise; M54.9 Dorsalgia, unspecified; G89.29 Other chronic pain; N40.0 Benign prostatic hyperplasia without lower urinary tract symptoms; Z16.11 Resistance to penicillins; D17.0 Benign lipomatous neoplasm of skin and subcutaneous tissue of head, face and neck; B95.7 Other staphylococcus as the cause of diseases classified elsewhere; D53.9 Nutritional anemia, unspecified; Z53.8 Procedure and treatment not carried out for other reasons; I25.2 Old myocardial infarction; Z98.1 Arthrodesis status; Z90.49 Acquired absence of other specified parts of digestive tract; Z88.6 Allergy status to analgesic agent; Z88.1 Allergy status to other antibiotic agents; Z88.3 Allergy status to other anti-infective agents; Z88.5 Allergy status to narcotic agent; Z88.8 Allergy status to other drugs, medicaments and biological substances; Z79.01 Long term (current) use of anticoagulants; Z79.899 Other long term (current) drug therapy; Z79.84 Long term (current) use of oral hypoglycemic drugs; Z87.440 Personal history of urinary (tract) infections; Z86.718 Personal history of other venous thrombosis and embolism
CPT/HCPCS: 36415; 74177; 80048; 80053; 81001; 81003; 82040; 82565; 82607; 82746; 82962; 83540; 83550; 83690; 83735; 84100; 85025; 87015; 87040; 87070; 87075; 87077; 87086; 87102; 87116; 87176; 87186; 87205; 87206; 87324; 88305; 89055; 96374; 99285; A9585; G0378; J0690; J1650; J2250; J2405; J2704; J3010; Q9967; J0295; J1815; J2370; J7030

== ENCOUNTER 2018-02-26 14:33 | Inpatient (IN) | payer MEDICARE ==
[~2018-02-26] VITALS: Ht 177.8 cm; Wt 64.0 kg
[~2018-02-26 14:33] MED LIST changes: +AMOX1TAB12 PO; -HYDR12.58 PO; +HYDROCHLOROTH12.5 MG PO
[2018-02-26] MEDS ORDERED: SODIUM CHLORIDE FLUSH 10ML SYR IVF ONE (15:30)
[2018-02-26 15:50] LABS: BASOPHILS # (AUTO) 0.01 x10^3/uL (0-0.1); BASOPHILS % (AUTO) 0 % (0-1); EOSINOPHILS # (AUTO) 0.06 x10^3/uL (0-0.4); EOSINOPHILS % (AUTO) 1 % (1-7); LYMPHOCYTES # (AUTO) 1.41 x10^3/uL (1-3.4); LYMPHOCYTES % (AUTO) 17 % (22-44); MD NO; MEAN CORPUSCULAR HEMOGLOBIN 36.3 pg (27.5-34.5); MEAN CORPUSCULAR HGB CONC 34.4 g/dL (33.2-36.2); MEAN CORPUSCULAR VOLUME 105.3 fL (81-97); MEAN PLATELET VOLUME 6.2 fL (7.4-10.4); MONOCYTES # (AUTO) 0.57 x10^3/uL (0.2-0.8); MONOCYTES % (AUTO) 7 % (2-9); NEUTROPHILS # (AUTO) 6.31 x10^3/uL (1.8-6.8); NEUTROPHILS % (AUTO) 76 % (42-75); PLATELET COUNT 126 x10^3/uL (130-400); RED CELL DISTRIBUTION WIDTH 13.6 % (9.4-14.8)
[2018-02-26 16:01] LABS: INTERNATIONAL NORMALIZED RATIO 1.04 (0.93-1.1)
[2018-02-26 16:03] LABS: ALANINE AMINOTRANSFERASE 26 U/L (12-78); ALBUMIN 3.1 g/dL (3.4-5.0); ANION GAP 8 mmol/L (5-15); CALCIUM 9.2 mg/dL (8.5-10.1); CHLORIDE 108 mmol/L (98-107); CREATININE 0.81 mg/dL (0.7-1.3)
[2018-02-26 16:07] LABS: ALKALINE PHOSPHATASE 132 U/L (45-117); BILIRUBIN,TOTAL 0.8 mg/dL (0.2-1.0); TOTAL PROTEIN 7.7 g/dL (6.4-8.2)
[2018-02-26 16:20] LABS: ACETONE, SERUM Negative (Negative)
[2018-02-26] MEDS ORDERED: OMNIPAQUE 350 MG/ML, 100ML BOTTLE ONE (16:47)
[2018-02-26 17:01] LABS: CLOSTRIDIUM DIFFICILE ANTIGEN NEGATIVE; CLOSTRIDIUM DIFFICILE TOXIN NEGATIVE (Negative)
[2018-02-26 17:11] LABS: MICROSCOPIC INDICATED
[2018-02-26 17:12] LABS: CULTURE INDICATED? YES
[2018-02-26] MEDS ORDERED: SODIUM CHLORIDE FLUSH 10ML SYR IVF PRN (18:00)
[2018-02-26] MEDS ORDERED: ONDANSETRON ODT 4 MG PO PRN (18:30)
[2018-02-26 18:52] LABS: HEMOGLOBIN A1C 5.8 % (4.2-6.3)
[2018-02-26 19:14] LABS: FOLATE LEVEL > 20.0 ng/mL (3.1-17.5)
[2018-02-26] MEDS ORDERED: TRAVOPROST OPHTH 0.004%, 2.5ML EACHEYE SCH (21:00)
[2018-02-26] MEDS: SODIUM CHLORIDE 0.9% 1,000 ML IV SCH (22:52)
[2018-02-26] MEDS: metFORMIN 500 MG TABLET PO SCH (22:53)
[2018-02-26] MEDS: HEPARIN 5,000 UNITS/ML, 1ML SQ SCH (22:53)
[2018-02-26] MEDS: MIRTAZAPINE 15 MG TAB.RAPDIS PO SCH (22:54)
[2018-02-26 23:00] VITALS: BP 134/85
[2018-02-27 01:40] VITALS: BP 161/83
[2018-02-27 06:28] LABS: BASOPHILS # (AUTO) 0.02 x10^3/uL (0-0.1); BASOPHILS % (AUTO) 0 % (0-1); EOSINOPHILS # (AUTO) 0.09 x10^3/uL (0-0.4); EOSINOPHILS % (AUTO) 1 % (1-7); LYMPHOCYTES # (AUTO) 1.63 x10^3/uL (1-3.4); LYMPHOCYTES % (AUTO) 20 % (22-44); MD NO; MEAN CORPUSCULAR HEMOGLOBIN 35.5 pg (27.5-34.5); MEAN CORPUSCULAR HGB CONC 33.8 g/dL (33.2-36.2); MEAN CORPUSCULAR VOLUME 104.8 fL (81-97); MEAN PLATELET VOLUME 6.3 fL (7.4-10.4); MONOCYTES # (AUTO) 0.75 x10^3/uL (0.2-0.8); MONOCYTES % (AUTO) 9 % (2-9); NEUTROPHILS # (AUTO) 5.63 x10^3/uL (1.8-6.8); NEUTROPHILS % (AUTO) 69 % (42-75); PLATELET COUNT 114 x10^3/uL (130-400); RED CELL DISTRIBUTION WIDTH 13.8 % (9.4-14.8)
[2018-02-27 06:39] LABS: ALANINE AMINOTRANSFERASE 24 U/L (12-78); ALBUMIN 2.9 g/dL (3.4-5.0); ANION GAP 7 mmol/L (5-15); CHLORIDE 113 mmol/L (98-107); CREATININE 0.69 mg/dL (0.7-1.3)
[2018-02-27 06:41] LABS: ALKALINE PHOSPHATASE 120 U/L (45-117); BILIRUBIN,TOTAL 0.9 mg/dL (0.2-1.0); TOTAL PROTEIN 7.2 g/dL (6.4-8.2)
[2018-02-27 06:52] VITALS: BP 114/67
[2018-02-27] MEDS: HEPARIN 5,000 UNITS/ML, 1ML SQ SCH ×3 (06:53→21:46)
[2018-02-27] MEDS: SENNA/DOCUSATE TABLET PO SCH (08:23)
[2018-02-27] MEDS: POLYETHYLENE GLYCOL 17 GM PACKET PO SCH (08:23)
[2018-02-27] MEDS: ASCORBIC ACID 500 MG TABLET PO SCH (08:37)
[2018-02-27] MEDS: metFORMIN 500 MG TABLET PO SCH ×2 (08:37→21:47)
[2018-02-27] MEDS: TAMSULOSIN 0.4 MG CAP.ER.24H PO SCH (08:37)
[2018-02-27] MEDS: MULTIVITAMIN 1 TABLET PO SCH (08:37)
[2018-02-27] MEDS: CEFTRIAXONE PMX 1GM/50ML 50 ML IV SCH (12:24)
[2018-02-27] MEDS: SODIUM CHLORIDE 0.9% 1,000 ML IV SCH (12:24)
[2018-02-27 14:18] VITALS: BP 113/69
[2018-02-27 18:39] VITALS: BP 118/65
[2018-02-27] MEDS: LATANOPROST OPHTH 0.005%, 2.5ML EACHEYE SCH (21:46)
[2018-02-27] MEDS: MIRTAZAPINE 15 MG TAB.RAPDIS PO SCH (21:47)
[2018-02-28] MEDS: SODIUM CHLORIDE 0.9% 1,000 ML IV SCH ×2 (02:10→15:52)
[2018-02-28 02:40] VITALS: BP 128/66
[2018-02-28 07:09] VITALS: BP 132/71
[2018-02-28] MEDS: MULTIVITAMIN 1 TABLET PO SCH (07:54)
[2018-02-28] MEDS: SENNA/DOCUSATE TABLET PO SCH (07:55)
[2018-02-28] MEDS: metFORMIN 500 MG TABLET PO SCH ×2 (07:55→20:46)
[2018-02-28] MEDS: ASCORBIC ACID 500 MG TABLET PO SCH (07:55)
[2018-02-28] MEDS: TAMSULOSIN 0.4 MG CAP.ER.24H PO SCH (07:55)
[2018-02-28] MEDS: POLYETHYLENE GLYCOL 17 GM PACKET PO SCH (07:56)
[2018-02-28] MEDS: HEPARIN 5,000 UNITS/ML, 1ML SQ SCH ×3 (07:56→23:24)
[2018-02-28] MEDS: CEFTRIAXONE PMX 1GM/50ML 50 ML IV SCH (12:00)
[2018-02-28 12:46] VITALS: BP 147/73
[2018-02-28 12:56] LABS: MICROSCOPIC NOT IND
[2018-02-28 12:57] LABS: CULTURE INDICATED? NO
[2018-02-28] MEDS ORDERED: POLY17PO5 PO (17:51)
[2018-02-28 19:25] VITALS: BP 159/73
[2018-02-28] MEDS: MIRTAZAPINE 15 MG TAB.RAPDIS PO SCH (20:46)
[2018-02-28] MEDS: LATANOPROST OPHTH 0.005%, 2.5ML EACHEYE SCH (20:46)
[2018-03-01 01:32] VITALS: BP 125/60
[2018-03-01 07:32] VITALS: BP 138/66
[2018-03-01] MEDS: MULTIVITAMIN 1 TABLET PO SCH (07:36)
[2018-03-01] MEDS: HEPARIN 5,000 UNITS/ML, 1ML SQ SCH ×2 (07:36→16:30)
[2018-03-01] MEDS: SENNA/DOCUSATE TABLET PO SCH (07:36)
[2018-03-01] MEDS: POLYETHYLENE GLYCOL 17 GM PACKET PO SCH (07:36)
[2018-03-01] MEDS: TAMSULOSIN 0.4 MG CAP.ER.24H PO SCH (07:36)
[2018-03-01] MEDS: ASCORBIC ACID 500 MG TABLET PO SCH (07:36)
[2018-03-01] MEDS: metFORMIN 500 MG TABLET PO SCH ×2 (07:36→21:38)
[2018-03-01] MEDS ORDERED: DOCU-131 PO (09:53)
[2018-03-01] MEDS: SODIUM CHLORIDE 0.9% 1,000 ML IV SCH (10:00)
[2018-03-01 12:03] VITALS: BP 129/63
[2018-03-01] MEDS: CEFTRIAXONE PMX 1GM/50ML 50 ML IV SCH (16:30)
[2018-03-01 19:06] VITALS: BP 112/60
[2018-03-01] MEDS: MIRTAZAPINE 15 MG TAB.RAPDIS PO SCH (21:38)
[2018-03-01] MEDS: LATANOPROST OPHTH 0.005%, 2.5ML EACHEYE SCH (21:38)
[2018-03-02] MEDS: HEPARIN 5,000 UNITS/ML, 1ML SQ SCH ×2 (00:36→09:34)
[2018-03-02] MEDS: SODIUM CHLORIDE 0.9% 1,000 ML IV SCH ×2 (00:40→09:32)
[2018-03-02 01:18] VITALS: BP 136/67
[2018-03-02 09:09] VITALS: BP 169/73
[2018-03-02] MEDS: TAMSULOSIN 0.4 MG CAP.ER.24H PO SCH (09:32)
[2018-03-02] MEDS: ASCORBIC ACID 500 MG TABLET PO SCH (09:32)
[2018-03-02] MEDS: MULTIVITAMIN 1 TABLET PO SCH (09:32)
[2018-03-02] MEDS: metFORMIN 500 MG TABLET PO SCH (09:32)
[2018-03-02] MEDS: POLYETHYLENE GLYCOL 17 GM PACKET PO SCH (09:32)
[2018-03-02] MEDS: SENNA/DOCUSATE TABLET PO SCH (09:32)
[2018-03-02 11:20] VITALS: BP 154/53
== END 2018-03-02 17:01 | DRG 388 ==
LOC: ED 17:47 → EDIP 17:48 → ED 17:56 → 3NE 20:23
PROVIDERS: ADMIT Hospitalist; ATTEND Hospitalist
PROC: 0T9B70Z Drainage of Bladder with Drainage Device, Via Natural or Artificial Opening (ICD-10-PCS; principal; 2018-02-26)
DX: K56.41 Fecal impaction (principal); R53.2 Functional quadriplegia; K56.49 Other impaction of intestine; N39.0 Urinary tract infection, site not specified; E44.1 Mild protein-calorie malnutrition; M48.50XA Collapsed vertebra, not elsewhere classified, site unspecified, initial encounter for fracture; M48.00 Spinal stenosis, site unspecified; D69.6 Thrombocytopenia, unspecified; Z68.20 Body mass index [BMI] 20.0-20.9, adult; D75.89 Other specified diseases of blood and blood-forming organs; E11.9 Type 2 diabetes mellitus without complications; H40.9 Unspecified glaucoma; I25.2 Old myocardial infarction; N40.0 Benign prostatic hyperplasia without lower urinary tract symptoms; R62.7 Adult failure to thrive; Z98.1 Arthrodesis status; R19.7 Diarrhea, unspecified; M19.90 Unspecified osteoarthritis, unspecified site; Z90.49 Acquired absence of other specified parts of digestive tract
CPT/HCPCS: 36415; 71045; 74177; 80053; 81001; 81003; 82010; 82607; 82746; 83036; 83690; 83880; 84439; 84443; 85025; 85610; 85730; 87086; 87324; 89055; 93005; 99285; G0378; J0696; J1644; Q9967; J7030

== ENCOUNTER 2018-03-29 18:50 | Inpatient (IN) | payer MEDICARE ==
[~2018-03-29] VITALS: Ht 177.8 cm; Wt 63.3 kg
--- NOTE | 2018-03-29 19:07 | NUR ---
REPORT TO SARMAD VALDEZ
[2018-03-29] MEDS ORDERED: SODIUM CHLORIDE FLUSH 10ML SYR IVF ONE (19:30)
[2018-03-29 19:35] LABS: ALBUMIN 2.5 g/dL (3.4-5.0); ANION GAP 9 mmol/L (5-15); CALCIUM 8.4 mg/dL (8.5-10.1); CHLORIDE 106 mmol/L (98-107); CREATININE 0.72 mg/dL (0.7-1.3)
--- NOTE | 2018-03-29 19:46 | NUR ---
PT ARRIVES TO ED FROM HOME VIA EMS. EMS REPORTED THAT DAUGHTER CALLED EMS DUE TO NEW BRUISING. PER EMS DAUGHTER REPORTED "HE WAS DC FROM A FACILITY ([facility]) TWO DAYS AGO, THEY DIDNT TELL ME HE FELL UNTIL AFTER DC. HE HAS ALL THIS NEW FACE BRUISING AND LOWER ABD BRUISING WITH NO GOOD REASON". PT HAS BRUISING AROUND ZYGOMATIC ARCHES BILATERALLY AND HAS BRUSING ON LEFT LOWER ABD QUADRANT. PT DOES HAVE BRUISING IN ARMS THAT APPEAR TO BE CHRONIC.
[2018-03-29 19:47] LABS: MEAN CORPUSCULAR HEMOGLOBIN 36.2 pg (27.5-34.5); MEAN CORPUSCULAR HGB CONC 34.7 g/dL (33.2-36.2); MEAN CORPUSCULAR VOLUME 104.3 fL (81-97); RED CELL DISTRIBUTION WIDTH 13.8 % (9.4-14.8)
[2018-03-29 19:57] LABS: MEAN PLATELET VOLUME 6.5 fL (7.4-10.4); PLATELET COUNT 73 x10^3/uL (130-400)
[2018-03-29 20:01] LABS: MD YES
[2018-03-29 20:04] LABS: BAND#(MANUAL) 0.04 x10^3/uL; BANDS%(MANUAL) 1 % (0-7); EOS#(MANUAL) 0.27 x10^3/uL (0.0-0.4); EOS% (MANUAL) 7 % (1-7); LYMPH#(MANUAL) 1.56 x10^3/uL (1-3.4); LYMPHS% (MANUAL) 41 % (22-44); MONOS#(MANUAL) 0.38 x10^3/uL (0.3-2.7); MONOS% (MANUAL) 10 % (2-9); SEG#(MANUAL) 1.56 x10^3/uL (1.8-6.8); SEGS% (MANUAL) 41 % (42-75)
[2018-03-29 20:05] LABS: <PLATELET ESTIMATE> DECREASED; <PLT MORPHOLOGY> NORMAL PLT MORPH
--- NOTE | 2018-03-29 20:30 | NUR ---
Ligia schmid in [facility] - 03/29/18 at 2119 by VICKY nasra sent to lab
--- NOTE | 2018-03-29 21:29 | NUR ---
PT UNABLE TO PROVIDE UA AT THIS TIME.
[2018-03-29] MEDS ORDERED: LIDOCAINE 2%,20 ML JEL.PF.APP MM ONE (22:26)
--- NOTE | 2018-03-29 22:34 | NUR ---
STRAIGHT CATH FOR UA PERFORMED. NO COMPLICATIONS.
[2018-03-29 22:42] LABS: MICROSCOPIC NOT IND
[2018-03-29 22:48] LABS: CULTURE INDICATED? NO
--- NOTE | 2018-03-29 22:52 | NUR ---
OPTIFOAM DRESSING APPLIED TO ANKLES BILATERAL, LEFT UPPER ELBOW. PTS WOUND CARE FROM HOME LEFT ON FOR PROPER DRESSING FROM WOUND CARE.
--- NOTE | 2018-03-29 23:04 | NUR ---
REPORT TO DELFINO VALDEZ
[2018-03-29] MEDS ORDERED: NS + 20MEQ KCL 1,000 ML IV SCH (23:16)
[2018-03-29] MEDS ORDERED: DOCUSATE 100 MG CAPSULE PO PRN (23:30)
[2018-03-29] MEDS ORDERED: DEXTROSE 50%, 50ML SYRINGE IVPush PRN (23:30)
[2018-03-29] MEDS ORDERED: DEXTROSE 4 GM TAB.CHEW PO PRN (23:30)
[2018-03-29] MEDS ORDERED: ONDANSETRON 2MG/ML, 2ML IVPush PRN (23:30)
[2018-03-29] MEDS ORDERED: POLYETHYLENE GLYCOL 17 GM PACKET PO PRN (23:30)
[2018-03-29] MEDS ORDERED: GLUCAGON 1 MG IM PRN (23:30)
[2018-03-29] MEDS ORDERED: SODIUM CHLORIDE FLUSH 10ML SYR IVF PRN (23:30)
[2018-03-30] MEDS ORDERED: CEFTRIAXONE PMX 1GM/50ML 50 ML IV SCH (01:00)
[2018-03-30 01:06] VITALS: BP 116/53
[2018-03-30] MEDS: ENOXAPARIN 40 MG/0.4 ML SQ SCH ×2 (02:10→22:06)
[2018-03-30] MEDS ORDERED: OMNIPAQUE 350 MG/ML, 100ML BOTTLE ONE (04:11)
[2018-03-30] MEDS: INSULIN LISPRO 100 UNITS/ML, PEN SQ-INSULIN SCH ×4 (06:13→21:00)
[2018-03-30 08:08] LABS: ALBUMIN 2.5 g/dL (3.4-5.0); ANION GAP 7 mmol/L (5-15); CALCIUM 8.4 mg/dL (8.5-10.1); CHLORIDE 106 mmol/L (98-107); CREATININE 0.54 mg/dL (0.7-1.3)
[2018-03-30 08:13] LABS: MEAN CORPUSCULAR HEMOGLOBIN 35.1 pg (27.5-34.5); MEAN CORPUSCULAR HGB CONC 33.7 g/dL (33.2-36.2); MEAN CORPUSCULAR VOLUME 104.1 fL (81-97); MEAN PLATELET VOLUME 6.4 fL (7.4-10.4); PLATELET COUNT 56 x10^3/uL (130-400); RED BLOOD COUNT 3.22 x10^6/uL (4.38-5.82); RED CELL DISTRIBUTION WIDTH 13.8 % (9.4-14.8)
[2018-03-30] MEDS: TAMSULOSIN 0.4 MG CAP.ER.24H PO SCH (08:19)
[2018-03-30] MEDS: SODIUM CHLORIDE FLUSH 10ML SYR IVF SCH ×2 (08:20→21:00)
[2018-03-30] MEDS: SENNA/DOCUSATE TABLET PO SCH (08:20)
[2018-03-30] MEDS: POLYETHYLENE GLYCOL 17 GM PO SCH (08:20)
[2018-03-30 08:23] LABS: INTERNATIONAL NORMALIZED RATIO 1.06 (0.93-1.1); PROTHROMBIN TIME 11.2 Seconds (9.6-11.5)
[2018-03-30 08:26] VITALS: BP 130/72
[2018-03-30 08:45] LABS: MD YES
[2018-03-30 08:49] LABS: <PLATELET ESTIMATE> DECREASED; <PLT MORPHOLOGY> NORMAL PLT MORPH; BAND#(MANUAL) 0.03 x10^3/uL; BANDS%(MANUAL) 1 % (0-7); BASOS#(MANUAL) 0.06 x10^3/uL (0-0.1); BASOS% (MANUAL) 2 % (0-1); EOS#(MANUAL) 0.09 x10^3/uL (0.0-0.4); EOS% (MANUAL) 3 % (1-7); LYMPH#(MANUAL) 0.96 x10^3/uL (1-3.4); LYMPHS% (MANUAL) 32 % (22-44); MONOS#(MANUAL) 0.24 x10^3/uL (0.3-2.7); MONOS% (MANUAL) 8 % (2-9); SEG#(MANUAL) 1.62 x10^3/uL (1.8-6.8); SEGS% (MANUAL) 54 % (42-75)
[2018-03-30] MEDS ORDERED: metFORMIN 500 MG TABLET PO SCH (09:00)
[2018-03-30 13:43] VITALS: BP 131/61
[2018-03-30] MEDS: GABAPENTIN 100 MG CAPSULE PO PRN (16:15)
[2018-03-30 17:07] LABS: RAPID INFLUENZA A Negative (Negative); RAPID INFLUENZA B Negative (Negative)
[2018-03-30 19:34] VITALS: BP 127/62
[2018-03-30] MEDS: LATANOPROST OPHTH 0.005%, 2.5ML EACHEYE SCH (22:06)
[2018-03-31 04:22] VITALS: BP 104/56
[2018-03-31 06:36] LABS: MEAN CORPUSCULAR HEMOGLOBIN 35.4 pg (27.5-34.5); MEAN CORPUSCULAR VOLUME 104.2 fL (81-97); MEAN PLATELET VOLUME 6.3 fL (7.4-10.4); PLATELET COUNT 63 x10^3/uL (130-400); RED BLOOD COUNT 3.04 x10^6/uL (4.38-5.82); RED CELL DISTRIBUTION WIDTH 13.8 % (9.4-14.8)
[2018-03-31 06:37] LABS: ALBUMIN 2.4 g/dL (3.4-5.0); ANION GAP 3 mmol/L (5-15); CALCIUM 8.3 mg/dL (8.5-10.1); CHLORIDE 106 mmol/L (98-107); CREATININE 0.48 mg/dL (0.7-1.3)
[2018-03-31 06:49] LABS: BASOPHILS % (AUTO) 0 % (0-1); EOSINOPHILS % (AUTO) 7 % (1-7); LYMPHOCYTES # (AUTO) 1.02 x10^3/uL (1-3.4); LYMPHOCYTES % (AUTO) 35 % (22-44); MD SCAN; MONOCYTES # (AUTO) 0.36 x10^3/uL (0.2-0.8); MONOCYTES % (AUTO) 12 % (2-9); NEUTROPHILS # (AUTO) 1.33 x10^3/uL (1.8-6.8); NEUTROPHILS % (AUTO) 46 % (42-75)
[2018-03-31] MEDS: INSULIN LISPRO 100 UNITS/ML, PEN SQ-INSULIN SCH ×4 (07:00→20:33)
[2018-03-31 08:05] VITALS: BP 129/69
[2018-03-31] MEDS: POLYETHYLENE GLYCOL 17 GM PO SCH (09:00)
[2018-03-31] MEDS: SENNA/DOCUSATE TABLET PO SCH (09:14)
[2018-03-31] MEDS: TAMSULOSIN 0.4 MG CAP.ER.24H PO SCH (09:14)
[2018-03-31] MEDS: SODIUM CHLORIDE FLUSH 10ML SYR IVF SCH ×2 (09:14→20:33)
[2018-03-31 16:31] VITALS: BP 102/57
[2018-03-31] MEDS: LATANOPROST OPHTH 0.005%, 2.5ML EACHEYE SCH (20:33)
[2018-03-31 21:03] VITALS: BP 98/54
[2018-03-31] MEDS: ENOXAPARIN 40 MG/0.4 ML SQ SCH (23:44)
[2018-04-01 03:30] VITALS: BP 121/67
[2018-04-01 06:11] LABS: MEAN CORPUSCULAR HGB CONC 33.6 g/dL (33.2-36.2); MEAN CORPUSCULAR VOLUME 104.3 fL (81-97); MEAN PLATELET VOLUME 6.6 fL (7.4-10.4); PLATELET COUNT 66 x10^3/uL (130-400); RED BLOOD COUNT 3.17 x10^6/uL (4.38-5.82); RED CELL DISTRIBUTION WIDTH 13.5 % (9.4-14.8)
[2018-04-01 06:22] LABS: ALBUMIN 2.5 g/dL (3.4-5.0); ANION GAP 5 mmol/L (5-15); CALCIUM 8.5 mg/dL (8.5-10.1); CHLORIDE 105 mmol/L (98-107)
[2018-04-01 06:23] LABS: CREATININE 0.55 mg/dL (0.7-1.3)
[2018-04-01 06:32] LABS: BASOPHILS # (AUTO) 0.01 x10^3/uL (0-0.1); BASOPHILS % (AUTO) 0 % (0-1); EOSINOPHILS % (AUTO) 7 % (1-7); LYMPHOCYTES # (AUTO) 0.99 x10^3/uL (1-3.4); LYMPHOCYTES % (AUTO) 33 % (22-44); MD SCAN; MONOCYTES # (AUTO) 0.37 x10^3/uL (0.2-0.8); MONOCYTES % (AUTO) 12 % (2-9); NEUTROPHILS # (AUTO) 1.42 x10^3/uL (1.8-6.8); NEUTROPHILS % (AUTO) 48 % (42-75)
[2018-04-01] MEDS: INSULIN LISPRO 100 UNITS/ML, PEN SQ-INSULIN SCH ×4 (07:31→21:00)
[2018-04-01] MEDS: TAMSULOSIN 0.4 MG CAP.ER.24H PO SCH (09:03)
[2018-04-01] MEDS: SODIUM CHLORIDE FLUSH 10ML SYR IVF SCH ×2 (09:04→21:14)
[2018-04-01] MEDS: POLYETHYLENE GLYCOL 17 GM PO SCH (09:04)
[2018-04-01] MEDS: SENNA/DOCUSATE TABLET PO SCH (09:04)
[2018-04-01 09:12] VITALS: BP 124/60
[2018-04-01 13:43] VITALS: BP 107/55
[2018-04-01 21:05] VITALS: BP 103/61
[2018-04-01] MEDS: LATANOPROST OPHTH 0.005%, 2.5ML EACHEYE SCH (21:14)
[2018-04-01] MEDS: ENOXAPARIN 40 MG/0.4 ML SQ SCH (23:33)
[2018-04-02 02:52] VITALS: BP 122/63
[2018-04-02] MEDS: INSULIN LISPRO 100 UNITS/ML, PEN SQ-INSULIN SCH ×4 (07:00→20:51)
[2018-04-02 08:55] VITALS: BP 111/54
[2018-04-02] MEDS: POLYETHYLENE GLYCOL 17 GM PO SCH (09:00)
[2018-04-02] MEDS: SENNA/DOCUSATE TABLET PO SCH (09:46)
[2018-04-02] MEDS: SODIUM CHLORIDE FLUSH 10ML SYR IVF SCH ×2 (09:47→20:51)
[2018-04-02] MEDS: TAMSULOSIN 0.4 MG CAP.ER.24H PO SCH (09:47)
[2018-04-02 12:05] VITALS: BP 109/56
--- NOTE | 2018-04-02 16:53 | NUR ---
Green Activity sheet placed in room to include mechanical lift to wheelchair or 2 person slide board transfer to wheelchair (pillow on chair for cushion) one time a day for lunch. Addendum: 04/02/18 at 1654 by GARY HUYNH PT Amended: Links added.
[2018-04-02 19:19] VITALS: BP 131/62
[2018-04-02] MEDS: LATANOPROST OPHTH 0.005%, 2.5ML EACHEYE SCH (20:51)
[2018-04-03] MEDS: ENOXAPARIN 40 MG/0.4 ML SQ SCH (00:11)
[2018-04-03 01:05] VITALS: BP 137/62
[2018-04-03] MEDS: INSULIN LISPRO 100 UNITS/ML, PEN SQ-INSULIN SCH ×4 (07:00→21:00)
[2018-04-03 07:52] VITALS: BP 118/55
[2018-04-03] MEDS: POLYETHYLENE GLYCOL 17 GM PO SCH (09:00)
[2018-04-03] MEDS: SODIUM CHLORIDE FLUSH 10ML SYR IVF SCH ×2 (09:00→21:30)
[2018-04-03] MEDS: SENNA/DOCUSATE TABLET PO SCH (09:41)
[2018-04-03] MEDS: TAMSULOSIN 0.4 MG CAP.ER.24H PO SCH (09:41)
[2018-04-03 14:31] VITALS: BP 129/68
[2018-04-03 20:43] VITALS: BP 116/67
[2018-04-03] MEDS: LATANOPROST OPHTH 0.005%, 2.5ML EACHEYE SCH (21:29)
[2018-04-04] MEDS: ENOXAPARIN 40 MG/0.4 ML SQ SCH (00:15)
[2018-04-04 01:34] VITALS: BP 126/60
[2018-04-04 05:32] LABS: BASOPHILS # (AUTO) 0.01 x10^3/uL (0-0.1); BASOPHILS % (AUTO) 0 % (0-1); EOSINOPHILS # (AUTO) 0.26 x10^3/uL (0-0.4); EOSINOPHILS % (AUTO) 7 % (1-7); LYMPHOCYTES # (AUTO) 1.19 x10^3/uL (1-3.4); LYMPHOCYTES % (AUTO) 33 % (22-44); MD NO; MEAN CORPUSCULAR HGB CONC 34.3 g/dL (33.2-36.2); MEAN CORPUSCULAR VOLUME 104.9 fL (81-97); MEAN PLATELET VOLUME 6.6 fL (7.4-10.4); MONOCYTES # (AUTO) 0.39 x10^3/uL (0.2-0.8); MONOCYTES % (AUTO) 11 % (2-9); NEUTROPHILS # (AUTO) 1.72 x10^3/uL (1.8-6.8); NEUTROPHILS % (AUTO) 48 % (42-75); PLATELET COUNT 102 x10^3/uL (130-400); RED BLOOD COUNT 3.26 x10^6/uL (4.38-5.82); RED CELL DISTRIBUTION WIDTH 14.1 % (9.4-14.8)
[2018-04-04 05:49] LABS: ALBUMIN 2.5 g/dL (3.4-5.0); ANION GAP 6 mmol/L (5-15); CALCIUM 8.7 mg/dL (8.5-10.1); CHLORIDE 107 mmol/L (98-107)
[2018-04-04 05:50] LABS: CREATININE 0.58 mg/dL (0.7-1.3)
[2018-04-04] MEDS: INSULIN LISPRO 100 UNITS/ML, PEN SQ-INSULIN SCH ×3 (07:00→16:00)
[2018-04-04 07:50] VITALS: BP 120/86
[2018-04-04] MEDS: SODIUM CHLORIDE FLUSH 10ML SYR IVF SCH (09:00)
[2018-04-04] MEDS: POLYETHYLENE GLYCOL 17 GM PO SCH (09:00)
[2018-04-04] MEDS: GABAPENTIN 100 MG CAPSULE PO PRN (09:39)
[2018-04-04] MEDS: SENNA/DOCUSATE TABLET PO SCH (09:40)
[2018-04-04] MEDS: TAMSULOSIN 0.4 MG CAP.ER.24H PO SCH (09:40)
[2018-04-04 14:00] VITALS: BP 127/84
[2018-04-04 18:02] VITALS: BP 124/78
== END 2018-04-04 18:01 | disposition home or self-care (01) | DRG 183 ==
LOC: ED 21:59 → SUATTDRO 23:05 → EDIP 23:05 → 4NOR 03-30 00:50
PROVIDERS: ADMIT Family Medicine; ATTEND Family Medicine
DX: S22.42XA Multiple fractures of ribs, left side, initial encounter for closed fracture (principal); E43 Unspecified severe protein-calorie malnutrition; M48.50XA Collapsed vertebra, not elsewhere classified, site unspecified, initial encounter for fracture; J98.11 Atelectasis; D64.9 Anemia, unspecified; D69.6 Thrombocytopenia, unspecified; D72.819 Decreased white blood cell count, unspecified; E11.9 Type 2 diabetes mellitus without complications; N40.0 Benign prostatic hyperplasia without lower urinary tract symptoms; G43.909 Migraine, unspecified, not intractable, without status migrainosus; G89.29 Other chronic pain; M54.9 Dorsalgia, unspecified; M19.90 Unspecified osteoarthritis, unspecified site; M48.00 Spinal stenosis, site unspecified; S91.302A Unspecified open wound, left foot, initial encounter; S91.301A Unspecified open wound, right foot, initial encounter; R50.9 Fever, unspecified; R53.81 Other malaise; K59.09 Other constipation; W01.0XXA Fall on same level from slipping, tripping and stumbling without subsequent striking against object, initial encounter; R07.81 Pleurodynia; Z90.49 Acquired absence of other specified parts of digestive tract; Y93.89 Activity, other specified; Z86.718 Personal history of other venous thrombosis and embolism; Z87.440 Personal history of urinary (tract) infections; I25.2 Old myocardial infarction; Z68.20 Body mass index [BMI] 20.0-20.9, adult; Z91.81 History of falling; Z98.1 Arthrodesis status; Y92.89 Other specified places as the place of occurrence of the external cause; Y99.8 Other external cause status; Z88.8 Allergy status to other drugs, medicaments and biological substances; Z88.1 Allergy status to other antibiotic agents
CPT/HCPCS: 36415; 70450; 71260; 80048; 81003; 82040; 82962; 83605; 84145; 85025; 85610; 85730; 87040; 87400; 99285; G0378; J0696; J1650; J3480; Q9967; 92523-GN

== ENCOUNTER 2018-05-12 21:10 | Emergency (ER) | payer MEDICARE ==
[~2018-05-12] VITALS: Ht 177.8 cm; Wt 62.0 kg
--- NOTE | 2018-05-12 21:23 | NUR ---
BIB [facility] FROM HOME, PT WAS AT HOME EXERCISING WITH BAND AND BAND SNAPPED ON PT'S RIGHT INNER ARM, NOTED PT WITH LARGE BRUISE TO AREA. PT SEEN HERE EARLIER TODAY FOR DIZZINESS AND SENT HOME WITH MECLAZINE. MONITORS APPLIED, SIDERAILS UP X2, CALL LIGHT WITHIN REACH. AWAITING ERP FOR EVAL AND ORDERS
[2018-05-12 22:12] VITALS: BP 128/67
--- NOTE | 2018-05-12 22:12 | NUR ---
PT RESTING CALMLY, MONITORS IN PLACE, DENIES NEEDS OR PAIN, CALL LIGHT WITHIN REACH. CHART UP FOR RECHECK
[2018-05-12] MEDS ORDERED: MECL-76 PO (22:14)
--- NOTE | 2018-05-12 22:45 | NUR ---
CALL FROM DAUGHTER, STATES JAKE WILL BE HOME TO HELP GET HER FATHER SETTLED AFTER DISCHARGE
--- NOTE | 2018-05-12 23:02 | NUR ---
PT INCONTINENT OF URINE AQND BM, PT CLEANED
== END 2018-05-12 23:06 | disposition home or self-care (01) ==
LOC: ED 22:47
DX: S50.01XA Contusion of right elbow, initial encounter (principal); S50.311A Abrasion of right elbow, initial encounter; E11.9 Type 2 diabetes mellitus without complications; I10 Essential (primary) hypertension; I25.2 Old myocardial infarction; G40.909 Epilepsy, unspecified, not intractable, without status epilepticus; Z90.89 Acquired absence of other organs; X58.XXXA Exposure to other specified factors, initial encounter; Y93.89 Activity, other specified; Y92.89 Other specified places as the place of occurrence of the external cause; Y99.8 Other external cause status
CPT/HCPCS: 99283

== ENCOUNTER 2018-07-23 18:42 | Emergency (ER) | payer MEDICARE ==
[~2018-07-23] VITALS: Ht 172.7 cm; Wt 68.2 kg
[~2018-07-23 18:42] MED LIST changes: +MECL-76 PO; -MIRT15TA6 PO; +MIRT15TA94 PO; +SENN-177 PO; -SENN1TAB8 PO
--- NOTE | 2018-07-23 18:51 | NUR ---
bib [facility] for c/ wounds to ble secondary to pt picking at legs. pt has hx dm type 1. pt aox4. als c/o lower back pain and buttocks pain. 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 pt resting on gurney. nadn. monitors applied.
--- NOTE | 2018-07-23 19:06 | NUR ---
report given to jennifer marks rn.
--- NOTE | 2018-07-23 19:10 | NUR ---
REPORT RECEIVED FROM MARCE VALDEZ, ASSUMED CARE OF PT. ERP AT BEDSIDE EVALUTING PT.
[2018-07-23 19:32] LABS: BASOPHILS # (AUTO) 0.01 x10^3/uL (0-0.1); BASOPHILS % (AUTO) 0 % (0-1); EOSINOPHILS # (AUTO) 0.15 x10^3/uL (0-0.4); EOSINOPHILS % (AUTO) 5 % (1-7); LYMPHOCYTES % (AUTO) 33 % (22-44); MD NO; MEAN CORPUSCULAR HEMOGLOBIN 36.5 pg (27.5-34.5); MEAN CORPUSCULAR HGB CONC 35.2 g/dL (33.2-36.2); MEAN CORPUSCULAR VOLUME 103.9 fL (81-97); MEAN PLATELET VOLUME 6.3 fL (7.4-10.4); MONOCYTES % (AUTO) 10 % (2-9); NEUTROPHILS # (AUTO) 1.58 x10^3/uL (1.8-6.8); NEUTROPHILS % (AUTO) 52 % (42-75); PLATELET COUNT 114 x10^3/uL (130-400); RED BLOOD COUNT 3.57 x10^6/uL (4.38-5.82); RED CELL DISTRIBUTION WIDTH 13.4 % (9.4-14.8)
[2018-07-23 19:41] LABS: ALANINE AMINOTRANSFERASE 22 U/L (12-78); ALBUMIN 3.1 g/dL (3.4-5.0); ANION GAP 3 mmol/L (5-15); CHLORIDE 104 mmol/L (98-107); CREATININE 0.86 mg/dL (0.7-1.3)
[2018-07-23 19:42] LABS: ALKALINE PHOSPHATASE 125 U/L (45-117); BILIRUBIN,TOTAL 0.3 mg/dL (0.2-1.0); TOTAL PROTEIN 7.3 g/dL (6.4-8.2)
--- NOTE | 2018-07-23 20:06 | NUR ---
PT RESTING ON GURNEY, DENIES ANY NEEDS AT THIS TIME. VITALS STABLE. WILL CONTINUE TO MONITOR.
[2018-07-23] MEDS ORDERED: BACITRACIN ZINC OINT 500U/GM, 0.9 GM ONE (20:48)
--- NOTE | 2018-07-23 21:22 | NUR ---
PT'S WOUNDS WRAPPED WITH BACITRACIN AND KERLEX. PT INSTRUCTED NOT TO PICK WOUNDS. PT NONAMBULATORY, CAME IN BY [facility]. WHEELCHAIR BOUND. DOES NOT HAVE WHEELCHAIR. CONTACTED DAUGHTER, REESE WHOM HE LIVES WITH. SHE STATES THEY DO NOT HAVE A CAR SO SHE CAN'T COME GET HIM. [facility] TRANSPORT ARRANGED TO GET PT HOME SAFELY
[2018-07-23 21:58] VITALS: BP 138/76
--- NOTE | 2018-07-23 21:59 | NUR ---
REPORT GIVEN TO ARIANNA, PT PROVIDED WITH DISCHARGE PAPERWORK AND BAG OF BELONGINGS. DISCHARGE PAPERWORK DISCUSSED WITH PT. ALL QUESTIONS ANSWERED.
== END 2018-07-23 22:06 | disposition home or self-care (01) ==
LOC: ED 19:05
DX: R21 Rash and other nonspecific skin eruption (principal); I10 Essential (primary) hypertension; I25.2 Old myocardial infarction; E11.9 Type 2 diabetes mellitus without complications; M54.9 Dorsalgia, unspecified; G89.29 Other chronic pain; G43.909 Migraine, unspecified, not intractable, without status migrainosus; M19.90 Unspecified osteoarthritis, unspecified site; Z86.718 Personal history of other venous thrombosis and embolism
CPT/HCPCS: 36415; 80053; 85025; 99283

== ENCOUNTER 2020-12-19 12:38 | Emergency (ER) | payer MEDICARE ==
[~2020-12-19] VITALS: Ht 175.3 cm; Wt 70.0 kg
[~2020-12-19 12:38] MED LIST changes: -ASCO500T5 PO; +ASCO500T56 PO; -LISI2.5T PO; +LISI2.5T12 PO; +METH-639 PO; -METH500T7 PO; +MULT-482 PO; -MULT-750 PO; -OXYC5TAB3 PO; +OXYC5TAB98 PO; -VANC1VIA3 IV; +VANC1VIA36 IV
[2020-12-19] MEDS ORDERED: SODIUM CHLORIDE FLUSH 10ML SYR IVF ONE (13:00)
--- NOTE | 2020-12-19 13:12 | NUR ---
IV STARTED, LABS DRAWN. CXR AT BEDSIDE. NAD NOTED AT THIS TIME. RESPIRATIONS EVEN AND UNLABORED ON NC. AWAITING CT SCAN. SIDE RAILS UP, CALL LIGHT IN REACH.
[2020-12-19 13:17] LABS: MEAN CORPUSCULAR HEMOGLOBIN 36.1 pg (27.5-34.5); MEAN CORPUSCULAR HGB CONC 34.3 g/dL (33.2-36.2); MEAN PLATELET VOLUME 6.1 fL (7.4-10.4); PLATELET COUNT 119 x10^3/uL (130-400); RED BLOOD COUNT 2.85 x10^6/uL (4.38-5.82); RED CELL DISTRIBUTION WIDTH 14.3 % (9.4-14.8)
[2020-12-19 13:28] LABS: ALBUMIN 2.3 g/dL (3.4-5.0); ANION GAP 5 mmol/L (5-15); CALCIUM 8.6 mg/dL (8.5-10.1); CHLORIDE 102 mmol/L (98-107); CREATININE 0.52 mg/dL (0.7-1.3)
[2020-12-19 13:38] LABS: BAND#(MANUAL) 0.06 x10^3/uL; BANDS%(MANUAL) 1 % (0-7); EOS#(MANUAL) 0.17 x10^3/uL (0.0-0.4); EOS% (MANUAL) 3 % (1-7); LYMPH#(MANUAL) 0.67 x10^3/uL (1-3.4); LYMPHS% (MANUAL) 12 % (22-44); METAMYELOCYTES# (MANUAL) 0.06 x10^3/uL (0-0); METAMYELOCYTES% (MANUAL) 1 % (0-1); MONOS#(MANUAL) 0.06 x10^3/uL (0.3-2.7); MONOS% (MANUAL) 1 % (2-9); REACTIVE LYMPHS # (MANUAL) 0.22 x10^3/uL (0-0); REACTIVE LYMPHS % (MANUAL) 4 % (0-0); SEG#(MANUAL) 4.37 x10^3/uL (1.8-6.8); SEGS% (MANUAL) 78 % (42-75)
[2020-12-19 13:39] LABS: <PLATELET ESTIMATE> DECREASED; <PLT MORPHOLOGY> NORMAL PLT MORPH; ANISOCYTOSIS 1+; POLYCHROMASIA 1+; TEAR DROPS 1+
[2020-12-19] MEDS ORDERED: OMNIPAQUE 350 MG/ML, 75ML BOTTLE ONE (13:59)
--- NOTE | 2020-12-19 14:32 | NUR ---
PT RECLINED IN BED WATCHING TELEVISION. NAD NOTED AT THIS TIME. AWAITING CT RESULTS. SIDE RAILS UP, CALL LIGHT IN REACH.
--- NOTE | 2020-12-19 15:05 | NUR ---
Bedside report received from COURTNEY Summers. Assumed care of patient. Pt currently resting on gurney. No apparent distress noted at this time. Pt aware we are waiting on recheck by HAILEY.
--- NOTE | 2020-12-19 15:07 | NUR ---
REPORT TO JACKIE. VALDEZ.
--- NOTE | 2020-12-19 15:59 | NUR ---
[facility] here to transport patient home. Daughter Joyce called and states she will be at the house to assist patient in.
[2020-12-19 16:01] VITALS: BP 129/66
== END 2020-12-19 16:08 | disposition home or self-care (01) ==
LOC: ED 12:45
DX: R22.2 Localized swelling, mass and lump, trunk (principal); C79.89 Secondary malignant neoplasm of other specified sites; I25.2 Old myocardial infarction; I10 Essential (primary) hypertension; E11.9 Type 2 diabetes mellitus without complications
CPT/HCPCS: 36415; 71045; 71260; 80048; 82040; 85025; 99285; Q9967